=== PATIENT | female | born 1980 | race Caucasian/White ===

== ENCOUNTER 2025-05-29 07:31 | Observation (INO) | payer BC, SELFPAY ==
--- OUTSIDE RECORDS SUMMARY | 2023-12-24 07:00 | XMS_ITS ---
Author Organization [facility] vices Address [address] [place] [id number] Care Team Providers Care Air Traffic Control Supervisor Name Role Phone Jessica Campa Unavailable [phone] REASON FOR VISIT CORPORATE TUTOR Limited Exam Social History Sex Assigned At : Social History Observation Description Sex Assigned At Female Encounters Encounter Location Date Provider Diagnosis [facility] [address] [place], [place] [id number] 12/24/2023 Jessica Campa Plan Of Treatment No Information Progress Notes * Dorcas HAMMONDSDOB: 9 (44 yo F)Acc No.[id number]:12/24/2023 Patient: Dorcas VELOZ Provider: Shad Campa DDS :1980 A ge:43 Y S ex:Female Date:12/24/2023 [facility] [facility] Subjective: * Chief Complaints: * 1 . CORPORATE TUTOR Limited Exam. * Medical History: Objective: * Vitals: Assessment: Plan: * Treatment: * Billing Information: * Visit Code: * Procedure Codes: * Electronic signature of Daren Campa DDS on 05/29/2025 at 07:53 AM EDT Sign off status: Pending * Provider: Shad Campa DDS Date: 12/24/2023 Generated for Shola joy/Elena/eTfanny on: 0 05/29/2025 07:53 AM EDT
--- OUTSIDE RECORDS SUMMARY | 2023-12-24 07:00 | XMS_ITS ---
Author Organization [facility] vices Address [address] [place] [id number] Care Team Providers Care Radiological Technologist Name Role Phone Jessica Campa Unavailable [phone] REASON FOR VISIT MANAGER PROCUREMENT Limited Exam Social History Sex Assigned At : Social History Observation Description Sex Assigned At Female Encounters Encounter Location Date Provider Diagnosis [facility] [address] [place], [place] [id number] 12/24/2023 Jessica Campa Plan Of Treatment No Information Progress Notes * Dorcas HAMMONDSDOB: 9 (44 yo F)Acc No.[id number]:12/24/2023 Patient: Dorcas VELOZ Provider: Shad Campa DDS :1980 A ge:43 Y S ex:Female Date:12/24/2023 [facility] [facility] Subjective: * Chief Complaints: * 1 . MANAGER PROCUREMENT Limited Exam. * Medical History: Objective: * Vitals: Assessment: Plan: * Treatment: * Billing Information: * Visit Code: * Procedure Codes: * Electronic signature of Daren Campa DDS on 05/30/2025 at 09:36 AM EDT Sign off status: Pending * Provider: Shad Campa DDS Date: 12/24/2023 Generated for Shola joy/Elena/eTfanny on: 0 05/30/2025 09:36 AM EDT
--- OUTSIDE RECORDS SUMMARY | 2025-05-25 08:55 | XMS_ITS | Encounter Summary ---
Author Organization [facility] tem Address [id number] [address] [place] [address] Care Team Providers Care Seed Laboratory Assistant Name Role Phone Chata Vargas APRN-CANOPY STRINGER Primary Care Provider + Encounter Details Date Type Department Care Team (Latest Contact Info) Description 05/25/2025 8:55 AM EDT - 05/25/2025 11:59 PM EDT Hospital Encounter [facility] - Cardiovascular [address] [place] [address] Palpitations Discharge Disposition: Home Social History Tobacco Use Types Packs/Day Years Used Date Smoking Tobacco: Never Smokeless Tobacco: Never Alcohol Use Standard Drinks/Week Comments Yes 6 (1 standard drink = 0.6 oz pur e alcohol) Occasional Overall Financial Resource Strain (CARDIA) Answe r Date Recorded How hard is it for you to pa y for the very basics like food, housing, medical care, and heating? Not hard at all 05/10/2025 PHQ-2 Answer Date Recorded Total Score 1 05/11/2025 PRAPARE - Transportation Answer Date Re corded In the past 12 months, has l ack of transportation kept you from medical appointments or from getting medications? No 04/14 In the past 12 months, has l ack of transportation kept you from meetings, work, or from getting things needed for daily living? No 05/10/2025 Housing Instability Answer Date Recorde d Are you worried or concerned that in the next two months you may not have stable housing that you own, rent or stay in as a part of a household? No 05/10/2025 Childcare Answer Date Recorded Childcare Unknown 02/22/2019 Employment Answer Date Recorded Employment Unknown 02/22/2019 Hunger Screening Answer Date Recorded Within the past 12 months we worried whether our food would run out before we got money to buy more. Never True 05/11/2025 Within the past 12 months th e food we bought just didn't last and we didn't have money to get more. Never True 05/11/2025 Purpose - Life Answer Date Recorded Purpose and direction in life Unknown Comments Unknown Sex and Gender Information Value Date Recorded Sex Assigned at Not on file Legal Sex Female 11:24 AM EDT Gender Identity Not on file Sexual Orientation Not on file documented as of this encounter Medications at Time of Discharge amLODIPine (NORVASC) 5 mg tablet Take 1 tablet (5 mg total) by mouth in the morning. 30 tablet 1 05/22/2025 bisoprolol (ZEBETA) 10 mg tablet TAKE 1 TABLET(10 MG) BY MOUTH IN THE MORNING 30 tablet 1 05/24/2025 lisinopriL (PRINIVIL,ZESTRIL ) 40 mg tablet Take 1 tablet (40 mg total) by mouth in the morning. 90 tablet 1 05/11/2025 traZODone (DESYREL) 100 mg tabletIndications :Dysthymia Take 1 tablet (100 mg total) by mouth nightly. 90 tablet 1 10/30/2022 documented as of this encounter Plan of Treatment Upcoming Encounters Date Type Department Care Team (Late st Contact Info) Description 06/21/2025 4:20 PM EDT Office Visit [facility] - Family Medicine [address] [place] [address] Chata Vargas, SUPERVISOR CEMETERY WORKERS-CANOPY STRINGER [address] [place] [address] Pending Results Name Type Priority Associated Diagnoses Date /Time Event monitor Cardiac Services Routine Palpitations 05/25/2025 8:55 AM EDT Scheduled Orders Name Type Priority Associated Diagnoses Orde r Schedule Event monitor Cardiac Services Routine Palpitations Once for 1 Occurrences starting 05/25/2025 until 05/25/2025 documented as of this encounter Visit Diagnoses Diagnosis Palpitations documented in this encounter Additional Health Concerns Assessment Noted Time PHQ-9 Depression Total Score: 1 05/11/20 11:13 AM EDT A Body Mass Index follow-up plan has been documented for the patient 04/06/2025 3:07 PM EDT documented as of this encounter Care Teams Seed Laboratory Assistant Relationship Specialty Start Date End Date Chata Vargas APRN-CANOPY STRINGER [address] [place] [address] PCP - General Internal Medicine 03/04/23 documented as of this encounter
--- OUTSIDE RECORDS SUMMARY | 2025-05-25 08:55 | XMS_ITS | Encounter Summary ---
Author Organization [facility] tem Address [id number] [address] [place] [address] Care Team Providers Care Staple Fiber Washer Name Role Phone Chata Vargas APRN-CONSTRUCTION CODE ADMINISTRATOR Primary Care Provider + Encounter Details Date Type Department Care Team (Latest Contact Info) Description 05/25/2025 8:55 AM EDT - 05/25/2025 11:59 PM EDT Hospital Encounter [facility] - Cardiovascular [address] [place] [address] Palpitations Discharge Disposition: Home Social History Tobacco [...] Medicine - Family Medicine [address] [place] [address] Chata Vargas, BOARD FILLER-CONSTRUCTION CODE ADMINISTRATOR [address] [place] [address] Pending Results Name Type Priority Associated Diagnoses [...] documented as of this encounter Care Teams Staple Fiber Washer Relationship Specialty Start Date End Date Chata Vargas APRN-CONSTRUCTION CODE ADMINISTRATOR [address] [place] [address] PCP - General Internal Medicine 03/04/23 documented as of this encounter
[2025-05-29] VITALS (76 sets, daily range): BP systolic 99–189; BP diastolic 62–130; PULSE 63–130; TEMP 36.5–36.8; O2SAT 96–100; BMI 26.5; BMI 25.0
--- NOTE | 2025-05-29 07:46 | ECG_ITS ---
The [facility] Test Date: 2025-05-29 Pat Name: KALINA HAMMONDS Department: Room: - Gender: Female Environmental Health Officer: : 1980 Requested By: [id number] Order Number: [id number] Reading MD: DAYANARA MOROCHO M.D. Measurements Intervals [place] Rate: 64 P: 46 [place]: 144 QRS: 39 QRSD: 76 T: 52 QT: 404 QTc: 414 Interpretive Statements 1100 Sinus rhythm 9110 normal ECG Compared to ECG 10/22/2021 15:14:45 Sinus tachycardia no longer present Right-axis deviation no longer present Electronically Signed On 05-29-2025 20:11:51 EDT by DAYANARA MOROCHO M.D.
--- NOTE | 2025-05-29 07:47 | CT_ITS ---
The [address] [address] Patient Name: KALINA HAMMONDS MRN: [id number] date: 1980 Sex: F Assigned Patient Location: ER Current Patient Location: ED.MAIN Accession/Order Number: [id number] Exam Date: 05/29/2025 08:40 Report Date: 05/29/2025 09:42 At the request of: AMANDA LOVE MD Procedure: CT head/brain wo con CT BRAIN WITHOUT CONTRAST: CLINICAL HISTORY: headache COMPARISON: None TECHNIQUE: Contiguous axial unenhanced images were obtained through the brain. This CT exam was performed using one or more following dose reduction techniques: Automated exposure control, adjustment of the mA and/or kV according to patient size, or use of iterative reconstruction technique. FINDINGS: There is no evidence of midline shift, intra or extra-axial fluid collection, hemorrhage or CT evidence of of acute large vascular distribution stroke. Mild scattered periventricular subcortical hypoattenuation noted nonspecific greatest within posterior parietal regions with possible areas of temporoparietal loss of jackson-white differentiation. Visualized intraorbital contents appear unremarkable. Visualized paranasal sinuses are clear. The surrounding soft tissues are normal. CT/CT head/brain wo con IMPRESSION: Multifocal hypoattenuation noted may raise possibility for PRES given the reported hypertension. Encephalitis or subacute infarcts, less likely, may also be considered in appropriate clinical setting. Consider MRI without with contrast if there are no contraindications. Impression dictated by: Piero Lopez M.D. 05/29/2025 9:42 AM Dictation Location: [place] [address] Electronically authenticated by: [id number] Y Date: 05/29/2025 09:42
--- OUTSIDE RECORDS SUMMARY | 2025-05-29 07:53 | XMS_ITS | Encounter Summary ---
Author Organization [employer] Sys tem Address [id number] [address] [place] [address] Care Team Providers Care Quality Control Checker Name Role Phone Chata Vargas APRN-SUPERVISORY CIVIL ENGINEER Primary Care Provider + Reason for Visit * Reason Onset Date Comments Med Refill 12/07/2024 Encounter Details Date Type Department Care Team (Late st Contact Info) Description 12/07/2024 Refill [facility] - Family Medicine [address] [place] [address] Chata Vargas APRN-SUPERVISORY CIVIL ENGINEER [address] [place] [address] Dysthymia Social History Tobacco Use Types Packs/Day Years Used Date Smoking Tobacco: Never Smokeless Tobacco: Never Alcohol Use Standard Drinks/Week Comments Yes 6 (1 standard drink = 0.6 oz pur e alcohol) Occasional Overall Financial Resource Strain (CARDIA) Answe r Date Recorded How hard is it for you to pa y for the very basics like food, housing, medical care, and heating? Not very hard 06/22/2023 PHQ-2 Answer Date Recorded Total Score 0 05/18/2024 PRAPARE - Transportation Answer Date Re corded In the past 12 months, has l ack of transportation kept you from medical appointments or from getting medications? No 06/13 In the past 12 months, has l ack of transportation kept you from meetings, work, or from getting things needed for daily living? No 06/22/2023 Housing Instability Answer Date Recorde d Are you worried or concerned that in the next two months you may not have stable housing that you own, rent or stay in as a part of a household? No 06/22/2023 Childcare Answer Date Recorded Childcare Unknown 02/22/2019 Employment Answer Date Recorded Employment Unknown 02/22/2019 Hunger Screening Answer Date Recorded Within the past 12 months we worried whether our food would run out before we got money to buy more. Never True 05/18/2024 Within the past 12 months th e food we bought just didn't last and we didn't have money to get more. Never True 05/18/2024 Purpose - Life Answer Date Recorded Purpose and direction in life Unknown Comments Unknown Sex and Gender Information Value Date Recorded Sex Assigned at Not on file Legal Sex Female 11:24 AM EDT Gender Identity Not on file Sexual Orientation Not on file documented as of this encounter Miscellaneous Notes * Telephone Encounter - MANUEL Thomas - 12/07/2024 3:07 PM EDT She has not had this in the last 2 yrs- with her new Dx of MARVIN I'd like to make sure she has been using her mask every night. She canceled her appt today - can she re-schedule ? documented in this encounter Plan of Treatment Upcoming Encounters Date Type Department Care Team (Late st Contact Info) Description 06/21/2025 4:20 PM EDT Office Visit [facility] - Family Medicine [address] [place] [address] Chata Vargas APRN-CNP [address] [facility] [address] [place] [address] documented as of this encounter Visit Diagnoses Diagnosis Dysthymia Dysthymic disorder documented in this encounter Additional Health Concerns Assessment Noted Time PHQ-9 Depression Total Score: 0 05/18/20 24 11:33 AM EDT documented as of this encounter Care Teams Quality Control Checker Relationship Specialty Start Date End Date Chata Vargas APRN-CNP [address] [place] [address] PCP - General Internal Medicine 03/04/23 documented as of this encounter
--- OUTSIDE RECORDS SUMMARY | 2025-05-29 07:53 | XMS_ITS | Encounter Summary ---
Author Organization [facility] Sys tem Address [id number] [address] [place] [address] Care Team Providers Care Laborer Orchard Name Role Phone Chata Vargas APRN-AUXILIARY ENGINEER Primary Care Provider + Encounter Details Date Type Department Care Team (Late st Contact Info) Description 09/05/2024 Orders Only [facility] - Family Medicine [address] [place] [address] Dalton Reyes, DO [address] [place] [address] Social History Tobacco Use Types Packs/Day Years [...] on file documented as of this encounter Plan of Treatment Upcoming Encounters Date Type Department Care Team (Late st Contact Info) Description 06/21/2025 4:20 PM EDT Office Visit [facility] - Family Medicine [address] [address] Chata Vargas, INTERACTIVE DIGITAL MEDIA SPECIALIST-AUXILIARY ENGINEER [address] [place] [address] documented as of this encounter Visit Diagnoses Not on filedocumented in this encounter Additional Health Concerns Assessment Noted Time PHQ-9 Depression Total Score: 0 05/18/20 24 11:33 AM EDT documented as of this encounter Care Teams Laborer Orchard Relationship Specialty Start Date End Date Chata Vargas, INTERACTIVE DIGITAL MEDIA SPECIALIST-AUXILIARY ENGINEER [address] [place] [address] PCP - General Internal Medicine 03/04/23 documented as of this encounter
--- OUTSIDE RECORDS SUMMARY | 2025-05-29 07:53 | XMS_ITS | Encounter Summary ---
Author Organization [facility] Address [id number] [address] [place] [address] Care Team Providers Care Music Composition Teacher Name Role Phone Chata Vargas APRN-PROFESSIONAL HEALTHCARE REPRESENTATIVE Primary Care Provider + Encounter Details Date Type Department Care Team (Late st Contact Info) Description 07/15/2023 Telephone [facility] - Family Medicine [address] [place] [phone] Tamiko Schofield CMA Social History Tobacco Use Types Packs/Day Years Used Date Smoking Tobacco: Never Smokeless Tobacco: Never Alcohol Use Standard Drinks/Week Comments Yes 0 (1 standard drink = 0.6 oz pur e alcohol) Occasional Overall Financial Resource Strain (CARDIA) Answe r Date Recorded How hard is it for you to pa y for the very basics like food, housing, medical care, and heating? Not very hard 06/22/2023 PHQ-2 Answer Date Recorded Total Score 0 06/22/2023 PRAPARE - Transportation Answer Date Re corded [...] got money to buy more. Never True 06/22/2023 Within the past 12 months th e food we bought just didn't last and we didn't have money to get more. Never True 06/22/2023 Purpose - Life Answer Date Recorded Purpose and direction in life Unknown Comments Unknown Sex and Gender Information Value Date Recorded Sex Assigned at Not on file Legal Sex Female 11:24 AM EDT Gender Identity Not on file Sexual Orientation Not on file documented as of this encounter Miscellaneous Notes * Telephone Encounter - Tamiko Schofield CMA - 07/15/2023 1:59 PM EDT Patient called and stated her rash has gotten worse. * Telephone Encounter - LINDA Duncan - 07/15/2023 1:59 PM EDT In what way has it gotten worse? LINDA Duncan 07/15/23 1427 * Telephone Encounter - Tamiko Schofield CMA - 07/15/2023 1:59 PM EDT Rash has spread a little but is more itchy and inflamed. * Telephone Encounter - LINDA Duncan - 07/15/2023 1:59 PM EDT That is typical of this type of rash, it takes 3-4 weeks to go away, has she repeated the second cycle yet? She should use that and use a moisturizer and take an antihistimine LINDA Duncan 07/15/23 1623 * Telephone Encounter - Tamiko Schofield CMA - 07/15/2023 1:59 PM EDT Patient states she has been doing all of this. She wanted to know if you could refer her to a Photocopy Operator near [place]? * Telephone Encounter - LINDA Duncan - 07/15/2023 1:59 PM EDT If it is no better in two weeks I will however with this rash this is still what is expected so sheneeds to give it time - LINDA Hayward 07/15/23 1705 * Telephone Encounter - Tamiko Schofield CMA - 07/15/2023 1:59 PM EDT LM for patient told her to call back if no better in 2 weeks documented in this encounter Plan of Treatment Upcoming Encounters Date Type Department Care Team (Late st Contact Info) Description 06/21/2025 4:20 PM EDT Office Visit [facility] - Family Medicine [address] [place] [address] Chata Vargas APRN-CNP [address] [place] [address] documented as of this encounter Visit Diagnoses Not on filedocumented in this encounter Additional Health Concerns Assessment Noted Time PHQ-9 Depression Total Score: 0 06/22/20 3:18 PM EDT documented as of this encounter Care Teams Music Composition Teacher Relationship Specialty Start Date End Date Chata Vargas APRN-CNP [address] [place] [address] PCP - General Internal Medicine 03/04/23 documented as of this encounter
--- OUTSIDE RECORDS SUMMARY | 2025-05-29 07:53 | XMS_ITS | Encounter Summary ---
Author Organization [facility] Address [id number] [address] [place] [address] Care Team Providers Care Yarn Sorter Name Role Phone Chata Vargas APRN-TILE LAYER HELPER Primary Care Provider + Encounter Details Date Type Department Care Team (Late st Contact Info) Description 02/06/[address] [facility] [address] [place] [address] Froylan Alvarado CMA Social History Tobacco Use Types Packs/Day [...] encounter Miscellaneous Notes * Telephone Encounter - Froylan Alvarado CMA - 02/06/2025 11:14 AM EDT Does her neuro want her to continue with this - in the last note, they said it wasn't helping her 01/31/25 2:13 PM Interface_Surescripts_Refills_In routed this conversation to MANUEL Thomas 01/12 * Telephone Encounter - Froylan Alvarado CMA - 02/06/2025 11:14 AM EDT I called pt and she states it does help relieve the pressure. Pharmacy is listed and correct. documented in this encounter Plan of Treatment Upcoming Encounters Date Type Department Care Team (Late st Contact Info) Description 06/21/2025 4:20 PM EDT Office Visit [facility] - Family Medicine [address] [place] [address] Chata Vargas APRN-CNP [address] [place] [address] documented as of this encounter Visit Diagnoses Not on filedocumented in this encounter Additional Health Concerns Assessment Noted Time PHQ-9 Depression Total Score: 0 05/18/20 24 11:33 AM EDT documented as of this encounter Care Teams Yarn Sorter Relationship Specialty Start Date End Date Chata Vargas, LINING MAKER HAND-TILE LAYER HELPER [address] [place] [address] PCP - General Internal Medicine 03/04/23 documented as of this encounter
--- OUTSIDE RECORDS SUMMARY | 2025-05-29 07:53 | XMS_ITS | Clinical Summary ---
Author Organization [facility] Address [address] [place] [address] Care Team Providers Care Staple Shear Operator Name Role Phone Chata Vargas MD Unavailable Unallocated, Noms Provider Primary Care Provi aracelis Allergies No known active allergies Medications carBAMazepine XR (TEGretol XR) 200 MG 12 hr tablet Take 200 mg by mouth in the morning and 200 mg before bedtime. Do not crush, chew, or split.. Active bisoprolol (Zebeta) 10 MG tablet Take 10 mg by mouth Daily Active traZODone (Desyrel) 100 MG tablet Take 100 mg by mouth at bedtime Active Social History Tobacco Use Types Packs/Day Years Used Date Smoking Tobacco: Never Assessed Comments Unknown Sex and Gender Information Value Date Recorded Sex Assigned at Not on file Legal Sex Female 10:40 AM EDT Gender Identity Not on file Sexual Orientation Not on file Last Filed Vital Signs Vital Sign Reading Time Taken Comments Blood Pressure 158/96 09/19/2024 3:39 PM EST Pulse 63 09/19/2024 3:39 PM EST Temperature - - Respiratory Rate - - Oxygen Saturation 96% 09/19/2024 3:39 PM EST Inhaled Oxygen Concentration - - Weight 64.6 kg (142 lb 6.4 oz) 09/19/2024 3:39 P M EST Height 157.5 cm (5' 2 ) 06/26/2024 8:56 AM EDT Body Mass Index 26.05 06/26/2024 8:56 AM EDT Plan of Treatment Health Maintenance Due Date Last Done Comments CT Colonography 1980 Colonoscopy 1980 Colorectal Cancer Screening 1980 FIT-DNA 1980 FIT 1979 FOBT 1980 Sigmoidoscopy 1980 Mammogram 05/09/2025 05/09/2024, 04/14, 11/16/2022, Additional history exists Influenza Vaccine (#1) 2025 06/18/2022, 2016 Pap Smear 03/07/2027 03/07/2024, 03/07/2024, 03/02/2018 Cervical Cancer Screening 03/08/2030 HPV/Cotest 03/08/2030 03/08/2025, 02/12, 03/07/2024, Additional history exists [place] [address] Care Teams Staple Shear Operator Relationship Specialty Start Date End Date Unallocated, Noms MD [address] [place] [address] PCP - General Family Medicine 07/27/24 Chata Vargas MD Referring Physician Family Medicine 05/23/24
--- OUTSIDE RECORDS SUMMARY | 2025-05-29 07:53 | XMS_ITS | Encounter Summary ---
Author Organization [facility] Sys tem Address [facility] [id number] [address] [place] [address] Care Team Providers Care Comic Book Artist Name Role Phone Chata Vargas APRN-HELIX COIL WINDER Primary Care Provider + Encounter Details Date Type Department Care Team (Late st Contact Info) Description 05/22/2025 Orders Only [facility] - Family Medicine [address] [place] [address] Chata Vargas APRN-HELIX COIL WINDER [address] [place] [address] Social History Tobacco Use Types Packs/Day Years [...] Medicine - Family Medicine [address] [place] [address] Chata Vargas DRAFTER (CAD) ELECTRICAL-HELIX COIL WINDER [address] [place] [address] documented as of this encounter Visit Diagnoses Not on filedocumented in this encounter Additional Health Concerns Assessment Noted Time PHQ-9 Depression Total Score: 1 05/11/20 25 11:13 AM EDT A Body Mass Index follow-up plan has been documented for the patient 04/06/2025 3:07 PM EDT documented as of this encounter Care Teams Comic Book Artist Relationship Specialty Start Date End Date Chata Vargas DRAFTER (CAD) ELECTRICAL-HELIX COIL WINDER [address] [place] [address] PCP - General Internal Medicine 03/04/23 documented as of this encounter
--- OUTSIDE RECORDS SUMMARY | 2025-05-29 07:53 | XMS_ITS | Encounter Summary ---
Author Organization [employer] Sys tem Address [facility] [id number] [address] [place] [address] Care Team Providers Care Bloom Conveyor Operator Name Role Phone Chata Vargas APRN-FOURTH OFFICER Primary Care Provider + Reason for Visit * Reason Onset Date Comments Med Refill 10/24/2024 Encounter Details Date Type Department Care Team (Late st Contact Info) Description 10/24/2024 Refill [facility] Internal Medicine - Family Medicine [address] [place] [id number] Korina, Migdalia, BEHAVIORAL GENETICIST Social History Tobacco Use Types Packs/Day Years [...] Medicine - Family Medicine [address] [place] [address] Chata Vargas RESEARCH METHODS INSTRUCTOR-FOURTH OFFICER [address] [facility] [address] documented as of this encounter Visit Diagnoses Not on filedocumented in this encounter Additional Health Concerns Assessment Noted Time PHQ-9 Depression Total Score: 0 05/18/20 24 11:33 AM EDT documented as of this encounter Care Teams Bloom Conveyor Operator Relationship Specialty Start Date End Date Chata Vargas RESEARCH METHODS INSTRUCTOR-FOURTH OFFICER [address] [place] [address] PCP - General Internal Medicine 03/04/23 documented as of this encounter
--- OUTSIDE RECORDS SUMMARY | 2025-05-29 07:53 | XMS_ITS | Clinical Summary ---
Author Organization [facility] Address [address], [address] [place] [address] Care Team Providers Care Clinical Office Technician Name Role Phone Dalton Reyes DO Primary Care Provider [phone] Allergies No known active allergies Medications bisoprolol (ZEBETA) 10 MG tablet Take 1 tablet by mouth daily Active Active Problems Problem Noted Date Diagnosed Date Essential hypertension 06/10/2020 Drug-induced hypokalemia 12/28/2019 Hypertriglyceridemia 11/06/2016 History of palpitations 06/08/2016 Encounters Date Type Department Care Team Description 03/12/2025 Results Follow-Up [facility] Part [address] [place] [address] Meghana Bustamante APRN - REGINE 03/08/2025 11:09 AM EDT - 03/08/2025 11:59 PM EDT Hospital Encounter [facility] [address] [place], [place] [id number] Well woman exam with routine gynecological exam; Screening for HPV (human papillomavirus) Discharge Disposition: Home or Self Care 03/08/2025 10:10 AM EDT Office Visit [facility] [address] [place], [place] [id number] Meghana Bustamante, MEDIA MARKETING SPECIALIST - CNM Well woman exam with routine gynecological exam (Primary Dx); Screening for HPV (human papillomavirus); Encounter for screening mammogram for malignant neoplasm of breast from Last 3 Months Immunizations Immunization Administration Dates Next Due Influenza Vaccine, unspecified formulation 07/19 Family History Medical History Relation Name Comments Asthma Brother 2 Kvng Diabetes Father Dylan oral medication & diet control High Cholesterol Father Dylan Seizures Father Hurbert Asthma Mother Beena Migraines Mother Beena Osteoarthritis Mother Beena Breast Cancer Neg Hx Relation Name Status Comments Brother 1 Alive Brother 2 Kvng Father Dylan Alive Maternal Grandfather Maternal Grandmother Mother Beena Alive Paternal Grandfather Paternal Grandmother Sister Alive Social History Tobacco Use Types Packs/Day Years Used Date Smoking Tobacco: Never Smokeless Tobacco: Never Tobacco Cessation:Counseling Given: Yes Alcohol Use Standard Drinks/Week Comments Yes 6 (1 standard drink = 0.6 oz pur e alcohol) socially [facility] Utilities Answer Date Recorded In the past 12 months has th e Analyze Re, gas, oil, or water Shift Network threatened to shut off services in your home? No 03/08/2025 PHQ-2 Answer Date Recorded PHQ-9 Total Score 0 03/08/2025 Hunger Vital Sign Answer Date Recorded Within the past 12 months, y ou worried that your food would run out before you got the money to buy more. Never true 03/08/20 25 Within the past 12 months, t he food you bought just didn't last and you didn't have money to get more. Never true 03/08/2025 PRAPARE - Transportation Answer Date Re corded In the past 12 months, has l ack of transportation kept you from medical appointments or from getting medications? No 02/12 In the past 12 months, has l ack of transportation kept you from meetings, work, or from getting things needed for daily living? No 03/08/2025 Housing Stability Vital Sign Answer Rod e Recorded In the last 12 months, was t here a time when you were not able to pay the mortgage or rent on time? No 03/08/2025 In the past 12 months, how m any times have you moved where you were living? 0 03/08/2025 At any time in the past 12 m [facility], were you homeless or living in a half-way (including now)? No 03/08/2025 Food Insecurity Answer Date Recorded Within the past 12 months, y ou worried that your food would run out before you got the money to buy more. 1 03/08/2025 Within the past 12 months, t he food you bought just didn't last and you didn't have money to get more. 1 03/08/2025 Comments No Sex and Gender Information Value Date Recorded Sex Assigned at Female 03/07/2025 10:20 AM EDT Legal Sex Female 4:15 PM EST Gender Identity Not on file Sexual Orientation Not on file Last Filed Vital Signs Vital Sign Reading Time Taken Comments Blood Pressure 136/86 03/08/2025 9:50 AM EDT Pulse 88 05/24/2014 10:54 AM EDT Temperature - - Respiratory Rate 18 12/03/2014 1:09 PM EDT Oxygen Saturation - - Inhaled Oxygen Concentration - - Weight 63.5 kg (140 lb) 03/08/2025 9:50 AM EDT Height 157.5 cm (5' 2 ) 03/08/2025 9:50 AM EDT Body Mass Index 25.61 03/08/2025 9:50 AM EDT Plan of Treatment Upcoming Encounters Date Type Department Care Team (Late st Contact Info) Description 06/22/2025 8:00 AM EDT Appointment [facility] [address] [place] [address] Yearly 03/12/2026 10:10 AM EDT Office Visit [facility] Part of [address] [place] [address] Meghana Bustamante APRN - ROSE [address] [place] [address] annual Health Maintenance Due Date Last Done Comments Hepatitis C screen 1997 Hepatitis B vaccine (1 of 3 - 19+ 3-dose series) 1998 Diabetes screen 2014 Lipids 2019 DTaP/Tdap/Td vaccine (2 - Td or Tdap) 07/27/2021 07/27/2011 Colonoscopy 2024 Colorectal Cancer Screen 2024 FIT/FOBT: Average risk 2024 Fecal-DNA (Cologuard): Average risk 2024 Sigmoidoscopy/CT colonography 2024 Flu vaccine (#1) 04/13/2025 06/18/2022, 07/19/2017 COVID-19 Vaccine ( season) 2025 11/07/2020, 10/17/2020 Depression Screen 03/08/2026 03/08/2025, 03/08/2025 Breast cancer screen 05/09/2026 05/09/2024, 11/16/2022, 11/19/2017 Pap smear 03/08/2028 03/08/2025, 02/12, 11/16/2017, Additional history exists Cervical cancer screen 03/08/2030 HPV (without or with Pap) 03/08/20302024, 03/07/2024, 11/16/2017 HIV screen Completed 09/13/2008 HPV vaccine (No Doses Required) Completed Hepatitis A vaccine Aged Out No longe r eligible based on patient's age to complete this topic Hib vaccine Aged Out No longer eligi ble based on patient's age to complete this topic Meningococcal (ACWY) vaccine Aged Out No longer eligible based on patient's age to complete this topic Meningococcal B vaccine Aged Out No l onger eligible based on patient's age to complete this topic Pneumococcal 0-49 years Vaccine Aged Out No longer eligible based on patient's age to complete this topic Polio vaccine Aged Out No longer elig ible based on patient's age to complete this topic Procedures Procedure Name Priority Date/Time Associated Diagnosis Comments HUMAN PAPILLOMAVIRUS (HPV) DNA PROBE THIN PREP HIGH RISK Routine 03/08/2025 12:00 AM EDT MARKETING REPORTING ANALYST CYTOLOGY Routine 03/08/2025 12:00 AM EDT LEE SHILPA DIGITAL SCREEN BILATERAL Routine 05/09/2024 7:55 AM EDT Encounter for screening mammogram for malignant neoplasm of breast from Last 3 Months or Most Recently Relevant to Health Maintenance Results * Human papillomavirus (HPV) DNA probe thin prep high risk (03/08/2025 12:00 AM EDT) Specimen Description CERVICAL MATERIAL 03/08/2025 12:00 AM EDT [facility] .THIN PREP 03/08/2025 12:00 AM EDT [facility] [employer] HPV, Genotype 16 Not Detected Not Detected 03/08/2025 12:00 AM EDT [facility] HPV, Genotype 18 Not Detected Not Detected 03/08/2025 12:00 AM EDT [employer] HPV, High Risk Other Not Detected Not Detected 03/08/2025 12:00 AM EDT [facility] HPV, Interpretation 03/08/2025 12:00 AM EDT [facility] [employer] Comment: This test amplifies and detects DNA of 14 high-risk HPV types associated with cervical cancer and its precursor lesions (HPV types 16,18, 31, 33, 35, 39, 45, 51, 52, 56, 58, 59, 66, and 68). Sensitivity may be affected by specimen collection methods, stage of infection, and the presence of interfering substances. Results should be interpreted in conjunction with other available laboratory and clinical data. A negative high-risk HPV result does not exclude the possibility of future cytologic HSIL or underlying CIN2-3 or cancer. This test is intended for medical purposes only and is not valid for the evaluation of suspected sexual abuse or for other forensic purposes. CERVICAL MATERIAL 03/08/2025 Meghana Bustamante MEDIA MARKETING SPECIALIST - CN HEMATOLOGY ORDERABLES Final Result [facility] [address] [place] [address], [facility] [phone] [place] [id number] [place] [id number] [phone] * MARKETING REPORTING ANALYST Cytology (03/08/2025 12:00 AM EDT) Cytology Report Path Number: [id number] DIAGNOSIS Imaged ThinPrep Pap - Cervical (1 monolayer slide): Specimen Adequacy: Satisfactory for evaluation. -Endocervical/tra nsformation zone component is absent. Descriptive Diagnosis: Negative for intraepithelial lesion or malignancy. Cytotech Screener: EY Electronically Signed Out E. Young CT(ASCP) 03/20/2025 Procedure/Addendum HPV Procedure Report Date Ordered: 03/09/2025 Status: Signed Out Date Complete: 03/11/2025 By: System Interface Date Reported: 03/11/2025 Sample: HPV Type 16 Result: Not Detected Ref Range: Not Detected Sample: HPV Type 18 Result: Not Detected Ref Range: Not Detected Sample: Other High Risk HPV Result: Not Detected Ref Range: Not Detected Sample: HPV Interp Result: Ref Range: This test amplifies and detects DNA of 14 high-risk HPV types associated with cervical cancer and its precursor lesions (HPV types 16,18, 31, 33, 35, 39, 45, 51, 52, 56, 58, 59, 66, and 68). Sensitivity may be affected by specimen collection methods, stage of infection, and the presence of interfering substances. Results should be interpreted in conjunction with other available laboratory and clinical data. A negative high-risk HPV result does not exclude the possibility of future cytologic HSIL or underlying CIN2-3 or cancer. This test is intended for medical purposes only and is not valid for the evaluation of suspected sexual abuse or for other forensic purposes. Performed at [facility] [address] ([phone] Source of Specimen: A: Imaged ThinPrep Pap - Cervical (1 monolayer slide) HPV Reflex?........... ...........HPV Regardless Clinical History Z01.419 Routine visual supervisor exam without abnormal findings Z11.51 Encounter for screening for HPV Processing Lab: [address] [address] Interpretation performed at [address] [address] This Pap Test has been evaluated with the assistance of the ThinPrep Pap Test Imaging System. The Pap smear is a screening test primarily for squamous epithelial lesions, which is subject to both false negative and false positive results. Your patient should be reminded to consult you immediately if she experiences any suspicious signs or symptoms, regardless of her Pap smear result. GYNECOLOGIC CYTOLOGY REPORT Patient Name: KALINA HAMMONDS [facility] Rec: [id number] [facility] ANATOMIC PATHOLOGY [address] [place] [address]. [place], [place] [address] [facility] [employer] CERVICAL MATERIAL 03/08/2025 025 7:41 AM EDT Meghana Bustamante MEDIA MARKETING SPECIALIST - REGINE PATHOLOGY/CYTOLOGY OR DERABLES Final Result [facility] [address] [phone] [facility] [employer] * LEE SHILPA DIGITAL SCREEN BILATERAL (05/09/2024 7:55 AM EDT) Anatomical Region Laterality Modality Breast Bilateral Mammography 05/10/2024 10:4 3 AM EDT Impressions 05/10/2024 10:45 AM EDT No mammographic evidence of malignancy BIRADS: BIRADS - CATEGORY 1 Negative. Normal interval follow-up is recommended in 12 months. OVERALL ASSESSMENT - NEGATIVE A letter of notification will be sent to the patient regarding the results. The [employer] recommends annual mammograms for women 40 years and older. Narrative 05/10/2024 10:45 AM EDT EXAMINATION: SCREENING DIGITAL BILATERAL MAMMOGRAM WITH TOMOSYNTHESIS, 05/09/2024 TECHNIQUE: Screening mammography was performed with tomosynthesis including MLO and CC views of the bilateral breasts. Computer aided detection was used for the interpretation of this exam. COMPARISON: November 19, 2017 and November 16 HISTORY: Screening. FINDINGS: The breasts are heterogeneously dense which can obscure small masses. There is no dominant mass architectural distortion or concerning grouping of microcalcification in either breast. Meghana Bustamante APRN - CNBrooke IMG MAMMOGRAPHY ORDER MP Final Result from Last 3 Months or Most Recently Relevant to Health Maintenance Insurance Care Teams Clinical Office Technician Relationship Specialty Start Date End Date Dalton Reyes DO PCP - General 11/23/13
--- OUTSIDE RECORDS SUMMARY | 2025-05-29 07:53 | XMS_ITS | Encounter Summary ---
Author Organization [facility] Sys tem Address [facility] [id number] [address] [place] [address] Care Team Providers Care Machining Technician Name Role Phone Chata Vargas APRN-CIRCULAR KNITTER Primary Care Provider + Reason for Visit * Reason Comments Med Refill Encounter Details Date Type Department Care Team (Late st Contact Info) Description 05/22/2025 Refill [facility] Internal Medicine - Family Medicine [address] [place] [address] Chata Vargas APRNCIRCULAR KNITTER [address] [facility] [address] Social History Tobacco Use Types Packs/Day Years [...] Medicine - Family Medicine [address] [place] [address] Chata Vargas APRN-CIRCULAR KNITTER [address] [place] [address] documented as of this encounter Visit Diagnoses Not on filedocumented in this encounter Additional Health Concerns Assessment Noted Time PHQ-9 Depression Total Score: 1 05/11/20 25 11:13 AM EDT A Body Mass Index follow-up plan has been documented for the patient 04/06/2025 3:07 PM EDT documented as of this encounter Care Teams Machining Technician Relationship Specialty Start Date End Date Chata Vargas RESIDENTIAL DOOR INSTALLER-CIRCULAR KNITTER [address] [place] [address] PCP - General Internal Medicine 03/04/23 documented as of this encounter
--- OUTSIDE RECORDS SUMMARY | 2025-05-29 07:53 | XMS_ITS | Encounter Summary ---
Author Organization [facility] Address [address] [place] [address] Care Team Providers Care Sales Representative Advertising Name Role Phone Chata Vargas MD Unavailable Unallocated, Noms Provider Primary Care Provi aracelis Encounter Details Date Type Department Care Team (Late st Contact Info) Description 07/31/2024 External Result Encounter [facility] [address] [place] [phone] Morales Johnston DO [address] [place] [address] Social History Tobacco Use Types Packs/Day Years Used Date Smoking Tobacco: Never Assessed Comments Unknown Sex and Gender Information Value Date Recorded Sex Assigned at Not on file Legal Sex Female 10:40 AM EDT Gender Identity Not on file Sexual Orientation Not on file documented as of this encounter Plan of Treatment Not on file documented as of this encounter Procedures Procedure Name Priority Date/Time Associated Diagnosis Comments MR BRAIN W AND WO CONTRAST (ROUTINE) 07/31/2024 9:16 AM EST documented in this encounter Results * MR brain w and wo contrast routine (07/31/2024 9:16 AM EST) Anatomical Region Laterality Modality Brain Magnetic Resonan ce 07/31/2024 9:16 AM EST Narrative 07/31/2024 9:14 AM EST THIS EXAM WAS PERFORMED AT [facility] MR BRAIN W WO CONT 07/29/2024 7:35 AM SIGN AND SYMPTOMS: Cranial nerve III palsy on left, pain and pressure behind left eye PROTOCOL: Multiplanar multisequence MR images of the brain were obtained with and without IV contrast CONTRAST: 13 mL of intravenous ProHance COMPARISON: None. FINDINGS: Extra axial spaces: Age appropriate. Hemorrhage: None. Ventricular system: Within normal limits. Basal cisterns: Within normal limits and not effaced. Cerebral parenchyma: There are nonspecific T2 and FLAIR hyperintense foci in the periventricular and subcortical white matter bilaterally. There is extension into the juxtacortical white matter. This is suspicious for a demyelinating process. No abnormal postcontrast enhancement. No diffusion restriction. Midline shift: None. Cerebellum: Within normal limits. Brainstem: Within normal limits. OTHER: Calvarium: Normal marrow signal. Vascular system: Satisfactory flow voids within the anterior and posterior circulation. Visualized Paranasal sinuses: Within normal limits. Visualized Orbits: Within normal limits. Visualized upper cervical spine: Within normal limits. Sella and skull base: Within normal limits. IMPRESSION: No acute intracranial pathology or abnormal postcontrast enhancement. There are nonspecific T2 and FLAIR hyperintense foci in the periventricular and subcortical white matter bilaterally. There is extension into the juxtacortical white matter. This is suspicious for a demyelinating process. Finalized by Darrin Morrison on 07/31/2024 9:14 AM Procedure Note Radiology, Radiologist, MD - 07/31/2024 THIS EXAM WAS PERFORMED AT [facility] MR BRAIN W WO CONT 07/29/2024 7:35 AM SIGN AND SYMPTOMS: Cranial nerve III palsy on left, pain and pressurebehind left eye PROTOCOL: Multiplanar multisequence MR images of the brain were obtainedwith and without IV contrast CONTRAST: 13 mL of intravenous ProHance COMPARISON: None. FINDINGS: Extra axial spaces: Age appropriate. Hemorrhage: None. Ventricular system: Within normal limits. Basal cisterns: Within normal limits and not effaced. Cerebral parenchyma: There are nonspecific T2 and FLAIR hyperintense fociin the periventricular and subcortical white matter bilaterally. There isextension into the juxtacortical white matter. This is suspicious for ademyelinating process. No abnormal postcontrast enhancement. Nodiffusion restriction. Midline shift: None. Cerebellum: Within normal limits. Brainstem: Within normal limits. OTHER: Calvarium: Normal marrow signal. Vascular system: Satisfactory flow voids within the anterior and posteriorcirculation. Visualized Paranasal sinuses: Within normal limits. Visualized Orbits: Within normal limits. Visualized upper cervical spine: Within normal limits. Sella and skull base: Within normal limits. IMPRESSION: No acute intracranial pathology or abnormal postcontrast enhancement. There are nonspecific T2 and FLAIR hyperintense foci in theperiventricular and subcortical white matter bilaterally. There isextension into the juxtacortical white matter. This is suspicious for ademyelinating process. Finalized by Darrin Morrison on 07/31/2024 9:14 AM Morales Johnston DO IMG MRI PROCEDURES Final Result documented in this encounter Visit Diagnoses Not on filedocumented in this encounter Care Teams Sales Representative Advertising Relationship Specialty Start Date End Date Unallocated, Noms MD [facility] [address] [place] [address] PCP - General Family Medicine 07/27/24 Chata Vargas MD Referring Physician Family Medicine 05/23/24 documented as of this encounter
--- OUTSIDE RECORDS SUMMARY | 2025-05-29 07:53 | XMS_ITS | Encounter Summary ---
Author Organization [employer] Sys [employer] Address [facility] [id number] [address] [place] [address] Care Team Providers Care Remote Broadcast Technician Name Role Phone Alicia Chata Brown APRN-CLOTHER IN Primary Care Provider + Reason for Visit * Reason Onset Date Comments Med Refill 05/24/2025 Encounter Details Date Type Department Care Team (Late st Contact Info) Description 05/24/2025 Refill [facility] Internal Medicine - Family Medicine [address] [place] [address] Nargis Davies CMA Social History Tobacco Use Types Packs/Day [...] Medicine - Family Medicine [address] [place] [address] Chata Vargas APRN-CNP [address] [facility] [address] documented as of this encounter Visit Diagnoses Not on filedocumented in this encounter Additional Health Concerns Assessment Noted Time PHQ-9 Depression Total Score: 1 05/11/20 25 11:13 AM EDT A Body Mass Index follow-up plan has been documented for the patient 04/06/2025 3:07 PM EDT documented as of this encounter Care Teams Remote Broadcast Technician Relationship Specialty Start Date End Date Chata Vargas APRN-CNP [address] [facility] [address] PCP - General Internal Medicine 03/04/23 documented as of this encounter
--- OUTSIDE RECORDS SUMMARY | 2025-05-29 07:53 | XMS_ITS | Encounter Summary ---
Author Organization [employer] Address [facility] [place]-[id number] [address] [place] [address] Care Team Providers Care Electrical Maintenance Supervisor Name Role Phone Alicia Chata Brown APRN-MINE PRODUCTION ENGINEER Primary Care Provider + Encounter Details Date Type Department Care Team (Latest Contact Info) Description 05/25/2025 Travel Social History Tobacco Use Types Packs/Day Years [...] Medicine - Family Medicine [address] [place] [address] Chata Vargas APRN-MINE PRODUCTION ENGINEER [address] [place] [address] documented as of this encounter Visit Diagnoses Not on filedocumented in this encounter Additional Health Concerns Assessment Noted Time PHQ-9 Depression Total Score: 1 05/11/20 11:13 AM EDT A Body Mass Index follow-up plan has been documented for the patient 04/06/2025 3:07 PM EDT documented as of this encounter Care Teams Electrical Maintenance Supervisor Relationship Specialty Start Date End Date Chata Vargas APRN-CNP [address] [place] [address] PCP - General Internal Medicine 03/04/23 documented as of this encounter
--- OUTSIDE RECORDS SUMMARY | 2025-05-29 07:53 | XMS_ITS | Encounter Summary ---
Author Organization [facility] Primordial Sys tem Address [id number] [address] [place] [address] Care Team Providers Care Manager Environmental Health And Safety Name Role Phone Chata Vargas APRN-OFFICE EXECUTIVE Primary Care Provider + Reason for Visit * Reason Comments Med Refill Encounter Details Date Type Department Care Team (Late st Contact Info) Description 05/22/2025 Refill [facility] Internal Medicine - Family Medicine [address] [place] [address] Chata Vargas APRNOFFICE EXECUTIVE [address] [facility] [address] [address] Social History Tobacco Use Types Packs/Day Years [...] Medicine - Family Medicine [address] [place] [address] Chata Vargas APRN-OFFICE EXECUTIVE [address] [place] [address] documented as of this encounter Visit Diagnoses Not on filedocumented in this encounter Additional Health Concerns Assessment Noted Time PHQ-9 Depression Total Score: 1 05/11/20 25 11:13 AM EDT A Body Mass Index follow-up plan has been documented for the patient 04/06/2025 3:07 PM EDT documented as of this encounter Care Teams Manager Environmental Health And Safety Relationship Specialty Start Date End Date Chata Vargas MOISTURE CONDITIONER OPERATOR-OFFICE EXECUTIVE [address] [place] [address] PCP - General Internal Medicine 03/04/23 documented as of this encounter
--- OUTSIDE RECORDS SUMMARY | 2025-05-29 07:53 | XMS_ITS | Encounter Summary ---
Author Organization [facility] s tem Address [id number] [address] [place] [address] Care Team Providers Care All Source Analyst Name Role Phone Chata Vargas APRN-FIREPROOF DOOR MAKER Primary Care Provider + Encounter Details Date Type Department Care Team (Late st Contact Info) Description 06/28/2023 Telephone [facility] Internal Medicine - Family Medicine [address] [place] [address] Chata Vargas APRN-FIREPROOF DOOR MAKER [address] [place] [address] Social History Tobacco Use Types Packs/Day Years [...] encounter Miscellaneous Notes * Telephone Encounter - Adrianne Ruedanett - 06/28/2023 9:43 AM EDT Patient called and states her skin issues is not getting better and would like something else called in. documented in this encounter Plan of Treatment Upcoming Encounters Date Type Department Care Team (Late st Contact Info) Description 06/21/2025 4:20 PM EDT Office Visit [facility] Internal Medicine - Family Medicine [address] [place] [address] Chata Vargas AEROGRAPHER-FIREPROOF DOOR MAKER [address] [place] [address] documented as of this encounter Visit Diagnoses Not on filedocumented in this encounter Additional Health Concerns Assessment Noted Time PHQ-9 Depression Total Score: 0 06/22/20 3:18 PM EDT documented as of this encounter Care Teams All Source Analyst Relationship Specialty Start Date End Date Chata Vargas, AEROGRAPHER-FIREPROOF DOOR MAKER [address] [place] [address] PCP - General Internal Medicine 03/04/23 documented as of this encounter
--- OUTSIDE RECORDS SUMMARY | 2025-05-29 07:53 | XMS_ITS | Encounter Summary ---
Author Organization [facility] Sys tem Address [id number] [address] [place] [address] Care Team Providers Care Outside Salesperson Name Role Phone Alicia, Chata Brown APRN-NEPHROLOGIST Primary Care Provider + Encounter Details Date Type Department Care Team (Late st Contact Info) Description 05/10/2024 Orders Only [facility] Internal Medicine - Family Medicine [address] [facility] [place] [id number] Ref Prov, [place] [address] Social History Tobacco Use Types Packs/Day Years [...] Medicine - Family Medicine [address] [address] Chata Vargas, CIVIL ENGINEER IN TRAINING-NEPHROLOGIST [address] [place] [address] documented as of this encounter Procedures Procedure Name Priority Date/Time Associated Diagnosis Comments MAMMOGRAPHY Routine 05/10/2024 2:49 PM EDT documented in this encounter Results * HM MAMMOGRAPHY (05/10/2024 2:49 PM EDT) Anatomical Region Laterality Modality Other us Not In System Ref Prov HEALTH MAINTENANCE Final Result documented in this encounter Visit Diagnoses Not on filedocumented in this encounter Additional Health Concerns Assessment Noted Time PHQ-9 Depression Total Score: 0 06/22/20 3:18 PM EDT documented as of this encounter Care Teams Outside Salesperson Relationship Specialty Start Date End Date Chata Vargas, CIVIL ENGINEER IN TRAINING-NEPHROLOGIST [address] [place] [address] PCP - General Internal Medicine 03/04/23 documented as of this encounter
--- OUTSIDE RECORDS SUMMARY | 2025-05-29 07:53 | XMS_ITS | Encounter Summary ---
Author Organization [employer] Sys tem Address [id number] [address] [place] [address] Care Team Providers Care Tint Layer Name Role Phone Alicia Chata Brown APRN-MAINTENANCE MGR Primary Care Provider + Reason for Visit * Reason Onset Date Comments Med Refill 02/07/2025 Encounter Details Date Type Department Care Team (Late st Contact Info) Description 02/07/2025 Refill [facility] Internal Medicine - Family Medicine [address] [place] [address] Nargis Davies CMA Social History Tobacco Use [...] Medicine - Family Medicine [address] [place] [address] Chata Vargas REGIONAL SALES CONSULTANT-MAINTENANCE MGR [address] [facility] [address] documented as of this encounter Visit Diagnoses Not on filedocumented in this encounter Additional Health Concerns Assessment Noted Time PHQ-9 Depression Total Score: 0 05/18/20 24 11:33 AM EDT documented as of this encounter Care Teams Tint Layer Relationship Specialty Start Date End Date Chata Vargas REGIONAL SALES CONSULTANT-MAINTENANCE MGR [address] [place] [address] PCP - General Internal Medicine 03/04/23 documented as of this encounter
--- OUTSIDE RECORDS SUMMARY | 2025-05-29 07:53 | XMS_ITS | Encounter Summary ---
Author Organization [facility] tem Address [id number] [address] [place] [address] Care Team Providers Care Financial Aid Director Name Role Phone Chata Vargas APRN-HEAD TRIMMER Primary Care Provider + Encounter Details Date Type Department Care Team (Late st Contact Info) Description 04/11/2025 Results Follow-Up [facility] Internal Medicine - Family Medicine [address] [place] [address] Chata Vargas APRN-HEAD TRIMMER [address] [facility] [address] Lipid profile, Comprehensive metabolic panel, CBC auto differential, Additional followed-up results: 2 Social History Tobacco Use Types Packs/Day Years [...] 06/22/2023 PHQ-2 Answer Date Recorded Total Score 2 04/05/2025 PRAPARE - Transportation Answer Date Re corded [...] got money to buy more. Never True 04/05/2025 Within the past 12 months th e food we bought just didn't last and we didn't have money to get more. Never True 04/05/2025 Purpose - Life Answer Date Recorded Purpose [...] Medicine - Family Medicine [address] [place] [address] Chata Vargas AUDIO VISUAL EQUIPMENT RENTAL CLERK-HEAD TRIMMER [address] [facility] Hospital[facility] [address] documented as of this encounter Visit Diagnoses Not on filedocumented in this encounter Additional Health Concerns Assessment Noted Time PHQ-9 Depression Total Score: 2 04/05/20 11:33 AM EDT A Body Mass Index follow-up plan has been documented for the patient 04/06/2025 3:07 PM EDT documented as of this encounter Care Teams Financial Aid Director Relationship Specialty Start Date End Date Chata Vargas, AUDIO VISUAL EQUIPMENT RENTAL CLERK-HEAD TRIMMER [address] [place] [address] PCP - General Internal Medicine 03/04/23 documented as of this encounter
--- OUTSIDE RECORDS SUMMARY | 2025-05-29 07:53 | XMS_ITS | Patient Health Record ---
Author Organization [facility] Address [address], [place] [id number] Care Team Providers Care Special Collections Librarian Name Role Phone Jessica Campa Unavailable [phone] Reason For Referral No Information Social History Sex Assigned At : Social History Observation Description Sex Assigned At Female Plan Of Treatment No Information
--- OUTSIDE RECORDS SUMMARY | 2025-05-29 07:53 | XMS_ITS | Clinical Summary ---
Author Organization [employer] tem Address [id number] [address] [place] [address] Care Team Providers Care Cement Finisher Name Role Phone Chata Vargas APRN-PRECISION ASSEMBLY INSPECTOR Primary Care Provider + Allergies Active Allergy Reactions Criticality Noted Date Comments Metronidazole Rash Low 06/22/2023 Medications traZODone (DESYREL) 100 mg tabletIndicatio ns:Dysthymia Take 1 tablet (100 mg total) by mouth nightly. 90 tablet 1 3 Active lisinopriL (PRINIVIL,ZESTR IL) 40 mg tablet Take 1 tablet (40 mg total) by mouth in the morning. 90 tablet 1 5 Active bisoprolol (ZEBETA) 10 mg tablet TAKE 1 TABLET(10 MG) BY MOUTH IN THE MORNING 30 tablet 1 5 Active amLODIPine (NORVASC) 5 mg tablet Take 1 tablet (5 mg total) by mouth in the morning. 30 tablet 1 5 Active carBAMazepine (TEGretol) 200 mg tablet TAKE 1 TABLET BY MOUTH IN THE MORNING AND 1 TABLET BEFORE BEDTIME 60 tablet 5 05/11/20 25 Discontinue d(Patient Stopped On Own) lisinopriL (PRINIVIL,ZESTR IL) 20 mg tablet TAKE 1 TABLET(20 MG) BY MOUTH IN THE MORNING 90 tablet 5 05/11/20 25 Discontinue d(Therapy completed) Active Problems Problem Noted Date Diagnosed Date Obstructive sleep apnea 05/15/2025 Essential hypertension 06/10/2020 Drug-induced hypokalemia 12/28/2019 Hypertriglyceridemia 11/06/2016 History of palpitations 06/08/2016 Encounters Date Type Department Care Team Description 05/25/2025 8:55 AM EDT - 05/25/2025 11:59 PM EDT Hospital [facility] [address] [place] [address] Palpitations Discharge Disposition: Home 05/25/2025 Travel 05/24/2025 Refill [facility] [address] [place] [address] Nargis Davies, [facility] 05/23/2025 Travel 05/22/2025 Refill [facility] [address] [place] [address] Chata Vargas, OFFICE SUPPORT-PRECISION ASSEMBLY INSPECTOR 05/22/2025 Orders Only [facility] [address] [place] [address] Chata Vargas, OFFICE SUPPORT-PRECISION ASSEMBLY INSPECTOR 05/22/2025 Refill [facility] [address] [place] [address] Chata Vargas, OFFICE SUPPORT-PRECISION ASSEMBLY INSPECTOR 05/11/2025 11:00 AM EDT Office Visit [facility] [address] [place] [address] Chata Vargas, OFFICE SUPPORT-PRECISION ASSEMBLY INSPECTOR Essential hypertension (Primary Dx); Palpitations; Obstructive sleep apnea; Oculomotor nerve palsy, unspecified laterality 05/10/2025 Travel 04/11/2025 [facility] [address] [place] [address] Chata Vargas, OFFICE SUPPORT-PRECISION ASSEMBLY INSPECTOR Lipid profile, Comprehensive metabolic panel, CBC auto differential, Additional followed-up results: 2 04/05/2025 11:40 AM EDT Office Visit [facility] [address] [place] [address] Chata Vargas APRN-GRICEL Eye pressure (Primary Dx); Hypertriglyceridemia; Essential hypertension; Fatigue, unspecified type; Special screening for malignant neoplasm of colon; Overweight (BMI 25.0-29.9) 04/05/2025 Refill [facility] [address] [place] [address] Chata Vargas APRN-CNP 04/05/2025 Travel 04/02/2025 Telephone [facility] [address] [place] [address] Tamiko Schofield CMA from Last 3 Months Immunizations Immunization Administration Dates Next Due Influenza, Im Trivalent Preservative 07/19/2017 Influenza, Injectable, Quadrivalent 06/18/2022 Tdap 07/27/2011 Family History Medical History Relation Name Comments Alcohol abuse Father Dad Diabetes Father Dad Hypertension Father Dad Arthritis Mother Mom Osteoarthritis Mother Mom Thrombosis Mother Mom Breast cancer Neg Hx Relation Name Status Comments Brother Alive Father Dad Alive Mother Mom Alive Social History Tobacco Use Types Packs/Day Years Used Date Smoking Tobacco: Never Smokeless Tobacco: Never Tobacco Cessation:Counseling Given: Not Answered Alcohol Use Standard Drinks/Week Comments Yes 6 [...] Sign Reading Time Taken Comments Blood Pressure 150/96 05/11/2025 11:14 AM EDT Pulse 99 05/11/2025 11:14 AM EDT Temperature 36.7 C (98 F) 05/11/2025 11:14 AM EDT Respiratory Rate 18 05/11/2025 11:14 AM EDT Oxygen Saturation 98% 05/11/2025 11:14 AM EDT Inhaled Oxygen Concentration - - Weight 62.2 kg (137 lb 3.2 oz) 05/11/2025 11:14 AM EDT Height 157.5 cm (5' 2.01 ) 05/11/2025 11:14 AM E DT Body Mass Index 25.09 05/11/2025 11:14 AM EDT Plan of Treatment Upcoming Encounters Date Type Department Care Team (Late st Contact Info) Description 06/21/2025 4:20 PM EDT Office Visit [facility] [address] [place] [address] Chata Vargas, OFFICE SUPPORT-PRECISION ASSEMBLY INSPECTOR [address] [facility] [address] [address] Health Maintenance Due Date Last Done Comments DTaP,Tdap and Td Vaccines (2 - Td or Tdap) 07/27/2021 07/27/2011 Mammogram 05/10/2025 05/10/2024, 04/14, 11/16/2022, Additional history exists Influenza Vaccine 05/14/2025 06/18/2022, 07/19/2017 Adult BMI Follow Up Plan 04/05/2026 04/05/2025 Adult BMI Screening 05/11/2026 05/11/2025 Depression Screening 05/11/2026 05/11/2025 Tobacco Screening 05/11/2026 05/11/2025 Pap Smear 03/08/2028 03/08/2025, 02/12, 03/07/2024, Additional history exists COVID-19 Vaccine Discontinued 11/07/2020, 10/17/2020 Medical Devices Not on file Procedures Procedure Name Priority Date/Time Associated Diagnosis Comments COLOGUARD NON-[facility] Routine 04/13/2025 6:40 AM EDT Special screening for malignant neoplasm of colon TSH WITH REFLEX Routine 04/05/2025 12:24 PM EDT Hypertriglyceridemia CBC WITH AUTO DIFFERENTIAL Routine 04/05/2025 12:24 PM EDT Fatigue, unspecified type COMPREHENSIVE METABOLIC PANEL Routine 04/05/2025 12:24 PM EDT Essential hypertension LIPID PROFILE Routine 04/05/2025 12:24 PM EDT Hypertriglyceridemia HM MAMMOGRAPHY Routine 05/10/2024 2:49 PM EDT from Last 3 Months or Most Recently Relevant to Health Maintenance Results * Cologuard [facility] (04/13/2025 6:40 AM EDT) EXTERNAL COLOGUARD Negative Negative 2024 1:19 PM EDT [employer] (CLIA #:[id number]) Comment: The Cologuard (TM) test was performed on this specimen. NEGATIVE TEST RESULT. A negative Cologuard result indicates a low likelihood that a colorectal cancer (CRC) or advanced adenoma (adenomatous polyps with more advanced pre-malignant features) is present. The chance that a person with a negative Cologuard test has a colorectal cancer is less than 1 in 1500 (negative predictive value >99.9%) or has an advanced adenoma is less than 5.3% (negative predictive value 94.7%). These data are based on a prospective cross-sectional study of 10,000 individuals at average risk for colorectal cancer who were screened with both Cologuard and colonoscopy. (Rob Larios al, N Engl J Med 2014;370(14):1286- 1297) The normal value (reference range) for this assay is negative. COLOGUARD RE-SCREENING RECOMMENDATION: Periodic colorectal cancer screening is an important part of preventive healthcare for asymptomatic individuals at average risk for colorectal cancer. Following a negative Cologuard result, the [place] [employer] and U.S. Multi-Society Task Force screening guidelines recommend a Cologuard re-screening interval of 3 years. References: [place] [employer] Guideline for Colorectal Cancer Screening: https://www.cancer.org/cancer/hiwhf-yvwevo-bvjeuj/cinfeqsqz-yfvtwcdcs-uqckesm/ac s-rec ommendations.html.; Harshal DK, Jayant ZAVALA, Mati BrushK, Colorectal Cancer Screening: Recommendations for Physicians and Patients from the U.S. Multi-Society Task Force on Colorectal Cancer Screening , Am J Gastroenterology 2017; 112:5851-2211. TEST DESCRIPTION: Composite algorithmic analysis of stool DNA-biomarkers with hemoglobin immunoassay. Quantitative values of individual biomarkers are not reportable and are not associated with individual biomarker result reference ranges. Cologuard is intended for colorectal cancer screening of adults of either sex, 45 years or older, who are at average-risk for colorectal cancer (CRC). Cologuard has been approved for use by the U.S. FDA. The performance of Cologuard was established in a cross sectional study of average-risk adults aged 50-84. Cologuard performance in patients ages 45 to 49 years was estimated by sub-group analysis of near-age groups. Colonoscopies performed for a positive result may find as the most clinically significant lesion: colorectal cancer [4.0%], advanced adenoma (including sessile serrated polyps greater than or equal to 1cm diameter) [20%] or non- advanced adenoma [31%]; or no colorectal neoplasia [45%]. These estimates are derived from a prospective cross-sectional screening study of 10,000 individuals at average risk for colorectal cancer who were screened with both Cologuard and colonoscopy. (Rob Larios al, N Engl J Med 2014;370(14):6831-5144.) Cologuard may produce a false negative or false positive result (no colorectal cancer or precancerous polyp present at colonoscopy follow up). A negative Cologuard test result does not guarantee the absence of CRC or advanced adenoma (pre-cancer). The current Cologuard screening interval is every 3 years. ([place] [employer] and U.S. Multi-Society Task Force). Cologuard performance data in a 10,000 patient pivotal study using colonoscopy as the reference method can be accessed at the following location: www.[employer].com/results. Additional description of the Cologuard test process, warnings and precautions can be found at www.cologuard.com. Stool specimen (specimen) Rectum structure / Unknown 04/13/2025 6:40 AM EDT 04/14/2025 1:18 PM EDT [facility] Final Re sult [employer] (CLIA #:[id number]) [address] [place] [address], [place] [phone] * TSH with Reflex (04/05/2025 12:24 PM EDT) TSH 1.18 0.49 - 4.67 uIU/mL 04/05/2025 6:53 PM EDT [facility] Blood Venous blood / Unknown 04/05/2025 12:24 PM EDT 04/05/2025 12:24 PM EDT [facility]ata [facility]as [facility] B[facility] ORDERABLES Fin al Result [facility] [address] [place] [address], [place] [phone] * CBC auto differential (04/05/2025 12:24 PM EDT) [facility] WBC 7.5 4 - 11 x10E9/L 04/05/2025 6:33 PM EDT [facility] RBC Count 4.31 3.8 - 5.2 X10E12/L 04/05/2025 6:33 PM EDT [facility] Hemoglobin 12.7 11.7 - 15.5 g/dL 04/05/2025 6:33 PM EDT [facility] Hematocrit 38.8 35 - 47 % 04/05/2025 6:33 PM EDT [facility] MCV 90 80 - 100 fL 04/05/2025 6:33 PM EDT [facility] MCH 29.4 27 - 34 pg 04/05/2025 6:33 PM EDT [facility] MCHC 32.7 32 - 36 g/dL 04/05/2025 6:33 PM EDT [facility] RDW 14.3 11.5 - 15 % 04/05/2025 6:33 PM EDT [facility] Platelet Count 338 150 - 450 X10E9/L 04/05/2025 6:33 PM EDT [facility] MPV 7.1 7 - 12 fL 04/05/2025 6:33 PM EDT [facility] Neutrophils % 65.9 % 04/05/2025 6:33 PM EDT [facility] Lymphocytes % 26.6 % 04/05/2025 6:33 PM EDT [facility] Monocytes % 5.7 % 04/05/2025 6:33 PM EDT [facility] Eosinophils % 1.1 % 04/05/2025 6:33 PM EDT [facility] Basophils % 0.7 % 04/05/2025 6:33 PM EDT [facility] Neutrophils Absolute (A) 5.0 1.5 - 6.6 10*3/uL 04/05/2025 6:33 PM EDT [facility] Lymphocytes Absolute 2.0 1.0 - 3.5 10*3/uL 04/05/2025 6:33 PM EDT [facility] Monocytes Absolute 0.4 0.0 - 0.9 10*3/uL 04/05/2025 6:33 PM EDT [facility] Eosinophils Absolute 0.1 0.0 - 0.4 10*3/uL 04/05/2025 6:33 PM EDT [facility] Basophils Absolute 0.1 0.0 - 0.2 10*3/uL 04/05/2025 6:33 PM EDT [facility] Differential Type AUTOMATED DIFFERENTIAL 04/05/2025 6:33 PM EDT [facility] Blood Venous blood / Unknown 04/05/2025 12:24 PM EDT 04/05/2025 12:24 PM EDT us Chata Vargas OFFICE SUPPORT-PRECISION ASSEMBLY INSPECTOR LAB BLOOD ORDERABLES Fin al Result [facility] [address] [place] [address], * (ABNORMAL) Lipid profile (04/05/2025 12:24 PM EDT) CHOLESTEROL 187 150 - 200 mg/dL 04/05/2025 6:49 PM EDT [facility] TRIGLYCERIDE 264(H) 27 - 150 mg/dL 04/05/2025 6:49 PM EDT [facility] HDL CHOLESTEROL 60 >39 mg/dL 6:49 PM EDT [facility] Comment: HDL <40 mg/dL - High Risk HDL > or = 40mg/dL- Desirable HDL >60 mg/dL - Negative Risk LDL (CALC) 74 <130 mg/dL 04/05/2025 6:49 PM EDT [facility] Comment: LDL <100 mg/dL - Desirable LDL >160 mg/dL - High Risk CHOLESTEROL:HDL 3.1 1.0 - 5.0 6:49 PM EDT [facility] VERY LOW LIPOPROTEIN 53(H) 0 - 30 mg/dL 04/05/2025 6:49 PM EDT [facility] Blood Venous blood / Unknown 04/05/2025 12:24 PM EDT 04/05/2025 12:24 PM EDT Chata Vargas OFFICE SUPPORT-PRECISION ASSEMBLY INSPECTOR LAB BLOOD ORDERABLES Fin al Result [facility] [address] [place] [address], [place] [phone] * (ABNORMAL) Comprehensive metabolic panel (04/05/2025 12:24 PM EDT) SODIUM 139 134 - 146 mmol/L 04/05/2025 6:49 PM EDT [facility] POTASSIUM 3.7 3.5 - 5.0 mmol/L 04/05/2025 6:49 PM EDT [facility] CHLORIDE 105 98 - 109 mmol/L 04/05/2025 6:49 PM EDT [facility] CARBON DIOXIDE 24 22 - 32 mmol/L 04/05/2025 6:49 PM EDT [facility] ANION GAP 10 5 - 15 mmol/L 04/05/2025 6:49 PM EDT [facility] BLOOD UREA NITROGEN 15 5 - 23 mg/dL 04/05/2025 6:49 PM EDT [facility] CREATININE 0.64 0.40 - 1.00 mg/dL 04/05/2025 6:49 PM EDT [facility] Comment:METHOD TRACEABLE TO IDMS STANDARD GLUCOSE 113(H) 65 - 99 mg/dL 04/05/2025 6:49 PM EDT [facility] CALCIUM 9.2 8.5 - 10.5 mg/dL 04/05/2025 6:49 PM EDT [facility] TOTAL PROTEIN 7.3 6.0 - 8.0 g/dL 04/05/2025 6:49 PM EDT [facility] ALBUMIN 4.7 3.2 - 5.3 g/dL 04/05/2025 6:49 PM EDT [facility] ALKALINE PHOSPHATASE 42 39 - 130 U/L 04/05/2025 6:49 PM EDT [facility] AST 15 <=41 U/L 04/05/2025 6:49 PM EDT [facility] ALT 15 <=31 U/L 04/05/2025 6:49 PM EDT [facility] BILIRUBIN,TOTAL 0.4 0.3 - 1.2 mg/dL 04/05/2025 6:49 PM EDT [facility] EGFR Non-Race Dependent >90 >=60 ml/min/1.7 3sq.m 04/05/2025 6:49 PM EDT [facility] Comment: Reported eGFR is based on the CKD-EPI 2020 equation that does not use a race coefficient. Blood Venous blood / Unknown 04/05/2025 12:24 PM EDT 04/05/2025 12:24 PM EDT us Chata Vargas OFFICE SUPPORT-PRECISION ASSEMBLY INSPECTOR LAB BLOOD ORDERABLES Fin al Result [facility] [address] [place] [address], [place] [phone] * HM MAMMOGRAPHY (05/10/2024 2:49 PM EDT) Anatomical Region Laterality Modality Other us Not In System Ref Prov HEALTH MAINTENANCE Final Result from Last 3 Months or Most Recently Relevant to Health Maintenance Insurance ANTH Care Teams Cement Finisher Relationship Specialty Start Date End Date Chata Vargas, OFFICE SUPPORT-PRECISION ASSEMBLY INSPECTOR [address] [place] [address] PCP - General Internal Medicine 03/04/23
--- OUTSIDE RECORDS SUMMARY | 2025-05-29 07:53 | XMS_ITS | Encounter Summary ---
Author Organization [facility] Sys tem Address [id number] [address] [place] [address] Care Team Providers Care Track Service Worker Name Role Phone Chata Vargas APRN-PLISSE MACHINE OPERATOR HELPER Primary Care Provider + Encounter Details Date Type Department Care Team (Late st Contact Info) Description 09/11/2024 Orders Only [facility] - [facility] Medicine [address] [place] [address] Dalton Reyes, DO [address] [place] [address] Social History Tobacco Use Types Packs/Day Years [...] - Family Medicine [address] [place] [address] Chata Vargas, FAMILY SUPPORT SPECIALIST-PLISSE MACHINE OPERATOR HELPER [address] [facility] [place] [address] documented as of this encounter Visit Diagnoses Not on filedocumented in this encounter Additional Health Concerns Assessment Noted Time PHQ-9 Depression Total Score: 0 05/18/20 24 11:33 AM EDT documented as of this encounter Care Teams Track Service Worker Relationship Specialty Start Date End Date Chata Vargas, FAMILY SUPPORT SPECIALIST-PLISSE MACHINE OPERATOR HELPER [address] [place] [address] PCP - General Internal Medicine 03/04/23 documented as of this encounter
--- OUTSIDE RECORDS SUMMARY | 2025-05-29 07:53 | XMS_ITS | Encounter Summary ---
Author Organization [employer] tem Address [id number] [address] [place] [address] Care Team Providers Care [employer] Psychiatrist Name Role Phone Alicia Chata Brown APRN-FINISHER TAILOR APPRENTICE Primary Care Provider + Encounter Details Date Type Department Care Team (Latest Contact Info) Description 05/23/2025 Travel Social History Tobacco Use Types Packs/Day [...] Medicine - Family Medicine [address] [place] [address] Chata Vargas APRN-FINISHER TAILOR APPRENTICE [address] [place] [address] documented as of this encounter Visit Diagnoses Not on filedocumented in this encounter Additional Health Concerns Assessment Noted Time PHQ-9 Depression Total Score: 1 05/11/20 11:13 AM EDT A Body Mass Index follow-up plan has been documented for the patient 04/06/2025 3:07 PM EDT documented as of this encounter Care Teams [employer] Psychiatrist Relationship Specialty Start Date End Date Chata Vargas APRN-CNP [address] [place] [address] PCP - General Internal Medicine 03/04/23 documented as of this encounter
[2025-05-29 08:09] LABS: Hematocrit 38.6 % (36.0-48.0); Hemoglobin 13.1 g/dL (12.0-16.0); Immature Granulocytes Abs Auto 0.01 10^3/uL (0.00-0.03); Immature Granulocytes Pct Auto 0.2 % (0.0-0.5); Lymphocytes Absolute Auto 1.6 10^3/uL (1.2-3.8); Mean Corpuscular HGB Conc 33.9 g/dL (29.9-35.2); Mean Corpuscular Hemoglobin 30.3 pg (26.7-34.0); Mean Corpuscular Volume 89.4 fL (81.0-99.0); Platelet Count 351 10^3/uL (150-450); Red Blood Count 4.32 10^6/uL (4.20-5.40); White Blood Count 6.2 10^3/uL (4.0-11.0)
--- NOTE | 2025-05-29 08:13 | ED.GENADUL1 ---
HPI HPI - General Adult General Chief complaint: Recheck/Abnormal Lab/Rx Stated complaint: HYPERTENSION Time Seen by Provider: 05/29/25 07:46 Source: patient Mode of arrival: walk-in Limitations: no limitations History of Present Illness HPI narrative: The patient is a 44-year-old female who has a history of recent increase in her blood pressure medication after her blood pressure was not controlled, is coming to the ER with few days history of headache mostly frontal associate with no nausea no vomiting, patient mentioned that also she has been she has been feeling weak and tired she did measure her blood pressure at home and it was 200 systolic There is no weakness numbness tingling or any other concerns The patient gave the pain right now 3 out of 10 Related Data Home Medications ?Medication ?Instructions ?Recorded ?Confirmed amlodipine 5 mg tablet 5 mg PO DAILY 05/29/25 05/29/25 lisinopril 40 mg tablet 40 mg PO DAILY 05/29/25 05/29/25 Allergies Allergy/AdvReac Type Severity Reaction Status Date / Time No Known Drug Allergies Allergy Verified 05/29/25 07:39 Opioid HPI Opioid Management Most Recent Opioid Data: Last Pain Scale 4 Today, 07:47 Review of Systems ROS Status of ROS 10 or more systems reviewed and unremarkable except as noted in history and below PFSH PFSH Social History Little interest or pleasure in doing things: not at all Feeling down, depressed, or hopeless: not at all Exam Narrative Exam Narrative: Nurses notes and vital signs reviewed and patient is not hypoxic. General: Well-appearing and in no apparent distress. Skin: Warm, dry, no pallor noted. No rash. Head: Normocephalic, atraumatic. Neck: Supple, non-tender. Cardiovascular: Regular Rate and Rhythm without murmur, gallop or rub. Respiratory: No accessory muscle use or respiratory distress. Lungs are clear to auscultation, no wheezing, rales or rhonchi Chest Wall: no tenderness Musculoskeletal: normal ROM, no calf or popliteal tenderness, no lower extremity edema/swelling GI: Abdomen is soft, non-distended. Normal bowel sounds. No masses appreciated. No tenderness to palpation. No rebound, guarding, or rigidity noted. Neurological: A&O x4. No cranial nerve dysfunction observed. No truncal ataxia. Moves all extremities. Sensation intact. Psychiatric: Cooperative and interactive. Normal mood and affect. Constitutional Vital Signs, click to edit/add: Last Vital Signs Temp 97.7 F 05/29/25 07:39 Pulse 75 05/29/25 10:10 Resp 17 05/29/25 10:10 BP 160/102 H 05/29/25 10:00 Pulse Ox 100 05/29/25 10:10 O2 Del Method Room Air 05/29/25 07:39 Course Vital Signs Vital signs: Vital Signs Temperature 97.7 F 05/29/25 07:39 Pulse Rate 70 05/29/25 07:39 Respiratory Rate 14 05/29/25 07:39 Blood Pressure 189/129 H 05/29/25 07:39 Pulse Oximetry 97 05/29/25 07:39 Oxygen Delivery Method Room Air 05/29/25 07:39 Temperature 97.7 F 05/29/25 07:39 Pulse Rate 75 05/29/25 10:10 Respiratory Rate 17 05/29/25 10:10 Blood Pressure 160/102 H 05/29/25 10:00 Pulse Oximetry 100 05/29/25 10:10 Oxygen Delivery Method Room Air 05/29/25 07:39 Medical Decision Making MDM Narrative Medical decision making narrative: The patient EKG in the ER showing sinus rhythm with a heart rate of [address] elevation or depression The patient CBC and chemistry showed no acute pathology Troponin was negative and test as well The patient initially her blood pressure responded to only control of headache with Toradol and her blood pressure went down to 139 systolic, The patient CT head shows possible PRES with a multifocal hypoattenuation noted that may raise the possibility of PRES . The patient case was discussed with the teleneurologist Dr. Pacheco and he recommended the patient need her blood pressure control with nicardipine drip as well as MRI done in the inpatient Per medical is at full capacity and I did call [facility] and Dr. Jiang recommended that the patient need to be admitted for blood pressure control and MRI and he mentioned that we can do this in our facility as he does not suspect the patient will need more inpatient management more than that The patient case discussed with and he agreed on admitting the patient for further evaluation of her blood pressure The patient initially was treated with hydralazine 1 dose that did not help her blood pressure nicardipine drip was started Lab Data Labs: Lab Results 05/29/25 Range/Units 07:58 WBC 6.2 (4.0-11.0) 10^3/uL RBC 4.32 (4.20-5.40) 10^6/uL Hgb 13.1 (12.0-16.0) g/dL Hct 38.6 (36.0-48.0) % MCV 89.4 (81.0-99.0) fL MCH 30.3 (26.7-34.0) pg MCHC 33.9 (29.9-35.2) g/dL RDW 13.0 (11.0-15.0) % Plt Count 351 (150-450) 10^3/uL MPV 8.3 L (9.5-13.5) fL Neut % (Auto) 65.6 (43.0-75.0) % Lymph % (Auto) 26.0 (20.5-60.0) % Haines % (Auto) 5.8 (1.7-12.0) % Eos % (Auto) 1.9 (0.9-7.0) % Baso % (Auto) 0.5 (0.2-2.0) % Neut # (Auto) 4.1 (1.4-6.5) 10^3/uL Lymph # (Auto) 1.6 (1.2-3.8) 10^3/uL Haines # (Auto) 0.4 (0.3-0.8) 10^3/uL Eos # (Auto) 0.1 (0.0-0.7) 10^3/uL Baso # (Auto) 0.0 (0.0-0.1) 10^3/uL Abs Immat Gran (auto) 0.01 (0.00-0.03) 10^3/uL Imm/Tot Granulo (auto) 0.2 (0.0-0.5) % PT 10.6 (9.0-11.6) sec INR 1.00 Sodium 141 (136-145) mmol/L Potassium 3.9 (3.5-5.1) mmol/L Chloride 104 (98-107) mmol/L Carbon Dioxide 25.6 (21.0-32.0) mmol/L Anion Gap 15.3 BUN 12.0 (7.0-18.0) mg/dL Creatinine 0.61 (0.55-1.02) mg/dL Est GFR ( Amer) >60 (>=60 mL/min/1.73m^2) Est GFR (Non-Af Amer) >60 (>=60 mL/min/1.73m^2) BUN/Creatinine Ratio 19.7 Glucose 95 (74-106) mg/dL Calcium 9.1 (8.5-10.1) mg/dL Total Bilirubin 0.5 (0.2-1.0) mg/dL AST 15 (15-37) U/L ALT 27 (14-59) U/L Alkaline Phosphatase 55 (46-116) U/L Troponin I High Sens <4.0 L (4.0-51.3) pg/mL Total Protein 7.9 (6.4-8.2) g/dL Albumin 4.2 (3.4-5.0) g/dL Globulin 3.7 g/dL Albumin/Globulin Ratio 1.1 Serum HCG, Qual Negative (NEGATIVE) Discharge Plan Discharge Chief Complaint: Recheck/Abnormal Lab/Rx Clinical Impression: PRES (posterior reversible encephalopathy syndrome), Hypertensive emergency Patient Disposition: Admitted As Inpatient Time of Disposition Decision: 10:51
[2025-05-29 08:22] LABS: INR 1.00; Prothrombin Time 10.6 sec (9.0-11.6)
[2025-05-29] MEDS: KETOROLAC TROMETHAMINE 30 MG/ML VIAL 15 MG IVP (08:23)
[2025-05-29 08:31] LABS: Alanine Aminotransferase 27 U/L (14-59); Albumin Globulin Ratio 1.1; Albumin Level 4.2 g/dL (3.4-5.0); Alkaline Phosphatase 55 U/L (46-116); Anion Gap 15.3; Aspartate Amino Transferase 15 U/L (15-37); Blood Urea Nitrogen 12.0 mg/dL (7.0-18.0); Calcium 9.1 mg/dL (8.5-10.1); Carbon Dioxide 25.6 mmol/L (21.0-32.0); Chloride 104 mmol/L (98-107); Estimated GFR (African America >60 (>=60 mL/min/1.73m^2); Estimated GFR (Non-African Ame >60 (>=60 mL/min/1.73m^2); Globulin 3.7 g/dL; Glucose 95 mg/dL (74-106); Potassium 3.9 mmol/L (3.5-5.1); Sodium 141 mmol/L (136-145); Total Protein 7.9 g/dL (6.4-8.2)
[2025-05-29] MEDS: HYDRALAZINE HCL 20 MG/ML VIAL 5 MG IVP (09:54)
[2025-05-29] MEDS: NICARDIPINE IN NACL, ISO-OSM 40 MG/200 ML PIGGYBACK 25 MG IV (10:59)
--- OUTSIDE RECORDS SUMMARY | 2025-05-29 11:43 | XMS_ITS | Encounter Summary ---
Author Organization [facility] Address [facility] [id number] [address] [place] [address] Care Team Providers Care Beach Expert Name Role Phone Alicia Chata Brown APRN-APPLICATIONS CHEMIST Primary Care Provider + Encounter Details Date Type Department Care Team (Late st Contact Info) Description 05/29/2025 11:43 AM EDT - Present Emergency [facility] Tele Stroke [address] [place] [address] Social History Tobacco Use Types Packs/Day Years [...] Medicine - Family Medicine [address] [place] [address] Chata Vargas MARBLEIZER-APPLICATIONS CHEMIST [address] [place] [address] documented as of this encounter Visit Diagnoses Not on filedocumented in this encounter Additional Health Concerns Assessment Noted Time PHQ-9 Depression Total Score: 1 05/11/20 25 11:13 AM EDT A Body Mass Index follow-up plan has been documented for the patient 04/06/2025 3:07 PM EDT documented as of this encounter Care Teams Beach Expert Relationship Specialty Start Date End Date Chata Vargas MARBLEIZER-APPLICATIONS CHEMIST [address] [place] [address] PCP - General Internal Medicine 03/04/23 documented as of this encounter
--- NOTE | 2025-05-29 12:11 | MR_ITS ---
The [address] [address] Patient Name: KALINA HAMMONDS MRN: [id number] date: 1980 Sex: F Assigned Patient Location: MS Current Patient Location: [place] Accession/Order Number: [id number] Exam Date: 05/29/2025 16:00 Report Date: 05/29/2025 17:31 At the request of: EVA STEWART MD Procedure: MR head/brain wo/w con MR head/brain wo/w con 05/29/2025 5:00 PM SIGN AND SYMPTOMS: ^PRES vs MS PROTOCOL: Multiplanar multisequence MR images of the brain with and without IV contrast CONTRAST: 13 mL of Dotarem COMPARISON: 05/29/2025 FINDINGS: Extra axial spaces: There is mild global volume loss which is advanced for the patient's age. Hemorrhage: None. Ventricular system: Within normal limits. Basal cisterns: Within normal limits and not effaced. Cerebral parenchyma: T2 and FLAIR hyperintense foci are noted in the periventricular, subcortical, and juxtacortical white matter. There is no accompanying diffusion restriction or abnormal postcontrast enhancement. Imaging findings suggest multiple sclerosis. Midline shift: None.. Cerebellum: Within normal limits. Brainstem: Within normal limits. OTHER: Calvarium: Normal marrow signal. Vascular system: Satisfactory flow voids within the anterior and posterior circulation. Visualized Paranasal sinuses: Within normal limits. Visualized Orbits: Within normal limits. Visualized upper cervical spine: Within normal limits. Sella and skull base: Within normal limits. MR/MR head/brain wo/w con IMPRESSION: T2 and FLAIR hyperintense foci are noted in the periventricular, subcortical, and juxtacortical white matter. There is no accompanying diffusion restriction or abnormal postcontrast enhancement. There is accompanying mild global volume loss which is advanced for the patient's age. Imaging findings suggest multiple sclerosis. No evidence to suggest PRES. Impression dictated by: Darrin Morrison M.D. 05/29/2025 5:31 PM Dictation Location: [place] [address] Electronically authenticated by: [id number] Y Date: 05/29/2025 17:31
--- NOTE | 2025-05-29 12:11 | CA_ITS ---
Patient Name: KALINA HAMMONDS MR#: [id number] : 1980 Exam Date: 05/29/2025 Ordering Doctor: EVA STEWART ECHOCARDIOGRAM REPORT PROCEDURE: CA ECHO DOPPLER COMPLETE INDICATIONS: Hypertensive urgency COMPARISON: None. DESCRIPTION: COMPLETE ECHOCARDIOGRAM Real-time transthoracic echocardiography with 2D, M-mode, spectral and color flow Doppler performed. QUALITY: Technical quality was good. LEFT VENTRICLE: Normal chamber size. Moderate concentric left ventricular hypertrophy. LV EF: Global left ventricular systolic function is hyperdynamic; visually estimated ejection fraction is 75%. No significant wall motion abnormalities. DIASTOLIC: Normal diastolic function. ATRIAL SEPTUM: Inadequately seen. LEFT ATRIUM: Normal chamber size. RIGHT ATRIUM: Normal chamber size. RIGHT VENTRICLE: Small chamber size. Normal right ventricular systolic function. TRICUSPID VALVE: Normal mobility and thickness. No stenosis with trivial regurgitation. No evidence of pulmonary hypertension. RVSP 29mmHg. MITRAL VALVE: Normal mobility and thickness. No evidence of mitral valve stenosis. There is no mitral annular calcification. No mitral regurgitation. AORTIC VALVE: Normal trileaflet appearance. No visible sclerosis. Normal leaflet mobility. No evidence of aortic valve stenosis. No aortic regurgitation. AORTIC ROOT: Normal diameter and appearance. PULMONIC VALVE: Normal thickness and mobility. No stenosis. Trivial regurgitation. PERICARDIUM: No evidence of pericardial effusion. IVC: Collapses with inspiration. Normal size. CONCLUSION: 1. Global left ventricular systolic function is hyperdynamic; visually estimated ejection fraction is 75% 2. Moderate left ventricular hypertrophy 3. The right ventricle is small in size with normal systolic function 4. Normal diastolic function 5. No significant valvular abnormalities Adult Echocardiography Procedure Report Left Ventricle LVEDD (3.7 - 5.6 cm): 3.27 cm LVESD (2.2 - 4.0 cm): 2.07 cm LVIVS thickness (0.6 - 1.2 cm): 1.44 cm LVPW thickness (0.5 - 1.0 cm): 1.30 cm e': 0.13 m/s E - e': 4.88 LVOT Max Gradient: 8.55 mm[Hg] LVOT Area (cm2): 1.46 m/s Peak Velocity (LVOT): 1.46 m/s Mean Velocity (LVOT): 1.10 m/s LVOT Diameter 2.08 cm Left Ventricular Ejection Fraction: 80.58 % Left Atrium LA Volume Index (2D A2C): 23.44 ml/m2 Left Atrium Systolic Dimension: 2.97 cm Mitral Valve MV E to A Ratio: 0.62 Mitral Valve A-Wave Peak Velocity: 1.01 m/s Mitral Valve E-Wave Peak Velocity: 0.62 m/s Right Ventricle RV Internal Diastolic Dimension: 2.34 cm Aorta AO Root Diam: 2.91 cm Ascending Ao Diam: 3.34 cm Aortic Valve AoV Area (Peak Avel): 3.41 cm2, 3.41 cm2 AoV Area (VTI): 3.23 cm2, 3.23 cm2 Peak Velocity(Antegrade Flow): 1.46 m/s Peak Gradient(Antegrade Flow): 8.48 mm[Hg] Mean Velocity(Antegrade Flow): 0.97 m/s Mean Gradient(Antegrade Flow): 4.58 mm[Hg] Velocity Time Integral: 23.64 cm Tricuspid Valve Peak Velocity (Regurgitant Flow): 2.57 m/s Pulmonic Valve Peak Velocity: 1.06 m/s Peak Gradient: 4.77 mm[Hg], 4.19 mm[Hg] Right Atrium Right Atrium Systolic Pressure: 13.60 ml, 13.60 ml Dictated by: Josef Orosco M.D. on 05/29/2025 at 16:54 Approved by: Josef Orosco M.D. on 05/29/2025 at 16:58
[2025-05-29 13:47] LABS: Glucose Urine UA NEGATIVE (NEGATIVE)
[2025-05-29 13:54] LABS: Cast Seen? NONE SEEN #/LPF (NONE SEEN); Crystals Seen? None Seen #/HPF (None Seen); Urine Culture Indicated NO
[2025-05-29 13:56] LABS: Cannabinoid Screen Urine NEGATIVE (NEGATIVE); Methamphetamines Screen Urine NEGATIVE (NEGATIVE); Tricyclic Antidepressant Urine NEGATIVE (NEGATIVE)
--- NOTE | 2025-05-29 16:18 | P.HP_ITS ---
HPI H&P: HPI History of Present Illness Chief complaint: HYPERTENSIVE EMERGENCY POSTERIOR REVERSIBLE ENCEPH Narrative: Mrs. Lindo is a 44-year-old female with a known history of hypertension. 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 Patient was sent to the emergency room for an evaluation. She was found to have blood pressure of 185 systolically. CAT scan showed changes consistent with pres. Patient was started on Cardene drip. Emergency room physician I discussed her case with neurology in [place] and also neurology at [facility]. They did not recommend any additional imaging other than MRI. They recommended blood pressure control. Patient denies any focal weakness or numbness. No slurred speech. No confusion or disorientation. Opioid HPI Opioid Management Most Recent Pain and Opioid Data: Last Pain Scale 4 Today, 07:47 Last Pain Assessment Today, 13:00 Last ORT Total Score 0 Today, 11:35 Last ORT Risk Category Low Risk Today, 11:35 Ur Phencyclidine Scrn, (NEGATIVE) Negative Today, 13:00 PFSH PFSH Medical History (Updated 05/29/25 @ 11:08 by Gloria Wang) Hypertension ?I10 - Essential (primary) hypertension (ICD-10) Surgical History (Updated 05/29/25 @ 11:08 by Gloria Wang) History of breast implant removal ?Z98.86 - Personal history of breast implant removal (ICD-10) History of elective breast augmentation ?Z98.82 - Breast implant status (ICD-10) Social History Highest level of school completed/degree received: 11th grade Little interest or pleasure in doing things: not at all Feeling down, depressed, or hopeless: not at all Meds Home Medications and Allergies Home Medications ?Medication ?Instructions ?Recorded ?Confirmed ?Type amlodipine 5 mg tablet 5 mg PO DAILY 05/29/2505/29 History lisinopril 40 mg tablet 40 mg PO DAILY 05/29/2505/14 History Allergies Allergy/AdvReac Type Severity Reaction Status Date / Time No Known Drug Allergies Allergy Verified 05/29/25 07:39 Exam Narrative Exam Narrative: [pt is awake and alert. oriented to place, time and person HEENT: [place] conjunctiva and NL buccal mucosa Neck: Supple, no tenderness Endocrine: No Thyromegaly. Vascular: No JVD or carotid bruit. Lymphatic: No cervical lymphadenopathy. Chest: CTA no DTP. Heart RRR, no extra sound or murmur. Abd: Soft, no tenderness, no rebound and no rigidity. Increase abd girth therefore clinically I could not exclude the possibility of intra abd mass or organomegaly. LE: No cyanosis or clubbing, no varices or edema. Neuro: A A O. Nl speech, comprehension and attention. Nl and symetrical motor and tone examination through out. []] Constitutional Vital Signs, click to edit/add: Last Vital Signs Temp 98 F 05/29/25 11:35 Pulse 112 H 05/29/25 15:15 Resp 18 05/29/25 15:15 BP 134/92 H 05/29/25 15:15 Pulse Ox 96 05/29/25 15:15 O2 Del Method Room Air 05/29/25 11:35 Results Labs Labs: Short CBC 05/29/25 Range/Units 07:58 WBC 6.2 (4.0-11.0) 10^3/uL Hgb 13.1 (12.0-16.0) g/dL Hct 38.6 (36.0-48.0) % Plt Count 351 (150-450) 10^3/uL BMP 05/29/25 07:58 Sodium 141 Potassium 3.9 Chloride 104 Carbon Dioxide 25.6 BUN 12.0 Creatinine 0.61 Glucose 95 Calcium 9.1 Liver Function 05/29/25 Range/Units 07:58 Total Bilirubin 0.5 (0.2-1.0) mg/dL AST 15 (15-37) U/L ALT 27 (14-59) U/L Alkaline Phosphatase 55 (46-116) U/L Albumin 4.2 (3.4-5.0) g/dL Urine 05/29/25 Range/Units 13:00 Urine Color Lt. yellow (YELLOW) Urine Clarity Clear (CLEAR) Urine pH 7.5 (5.0-9.0) Ur Specific [place] 1.015 (1.005-1.025) Urine Protein Negative (NEG/TRACE) mg/dL Urine Glucose (UA) Negative (NEGATIVE) mg/dL Assessment and Plan Assessment and Plan (1) Hypertensive emergency: (2) PRES (posterior reversible encephalopathy syndrome): Plan Hypertensive emergency in this 44-year-old female. Rule out secondary hypertension such as renal artery stenosis secondary to fibromuscular hypertrophy, pheochromocytoma, hyperaldosterenemia Requested to check metanephrine, aldosterone and renin level. Requested renal Doppler ultrasound rule out renal artery stenosis. Ideally patient may need CTA of the abdomen to see if she has any stenosis Started her on a combination of blood pressure medication to keep her systolic less than 150 Urine drug screen is negative Patient does not have features that would indicate obstructive sleep apnea contributing to her hypertensive urgency. Patient drinks a few beers a day. No excessive alcohol consumption. No tobacco use, no drug use. Abnormal CT brain suspicious for PRES Requested MRI of the brain with and without contrast Further needed diagnostic and therapeutic intervention will be determined based on the clinical progression and follow-up test result
[2025-05-29] MEDS: ACETAMINOPHEN 325 MG TABLET 650 MG PO (16:45)
[2025-05-29] MEDS: METOPROLOL TARTRATE 25 MG TABLET PO ×2 (17:11→20:39)
[2025-05-30] VITALS (18 sets, daily range): BP systolic 117–166; BP diastolic 71–101; PULSE 57–97; TEMP 36.4–36.7; O2SAT 96–98
[2025-05-30 06:33] LABS: Anion Gap 11.8; Blood Urea Nitrogen 18.0 mg/dL (7.0-18.0); Calcium 9.0 mg/dL (8.5-10.1); Carbon Dioxide 26.1 mmol/L (21.0-32.0); Chloride 107 mmol/L (98-107); Estimated GFR (African America >60 (>=60 mL/min/1.73m^2); Estimated GFR (Non-African Ame >60 (>=60 mL/min/1.73m^2); Glucose 103 mg/dL (74-106); Potassium 3.9 mmol/L (3.5-5.1); Sodium 141 mmol/L (136-145)
[2025-05-30] MEDS: METOPROLOL TARTRATE 25 MG TABLET PO (08:30)
[2025-05-30] MEDS: LISINOPRIL 20 MG TABLET PO (08:31)
[2025-05-30] MEDS: AMLODIPINE BESYLATE 5 MG TABLET PO (08:31)
--- NOTE | 2025-05-30 08:31 | PM.PN ---
Progress Note: Subjective Subjective Interval history: Patient is feeling better. Uneventful night. No chest pain palpitation. No headache. No confusion, no disorientation Exam Narrative Exam Narrative: [pt is awake and alert. oriented to place, time and person HEENT: [place] conjunctiva and NL buccal mucosa Neck: Supple, no tenderness Endocrine: No Thyromegaly. Vascular: No JVD or carotid bruit. Lymphatic: No cervical lymphadenopathy. Chest: CTA no DTP. Heart RRR, no extra sound or murmur. Abd: Soft, no tenderness, no rebound and no rigidity. Increase abd girth therefore clinically I could not exclude the possibility of intra abd mass or organomegaly. LE: No cyanosis or clubbing, no varices or edema. Neuro: A A O. Nl speech, comprehension and attention. Nl and symetrical motor and tone examination through out. []] Constitutional Vital Signs, click to edit/add: Last Vital Signs Temp 97.8 F 05/30/25 07:58 Pulse 61 05/30/25 08:09 Resp 16 05/30/25 07:58 BP 146/87 H 05/30/25 07:58 Pulse Ox 96 05/30/25 07:58 O2 Del Method Room Air 05/30/25 07:58 Progress Note: Objective Labs Labs: BMP 05/29/25 05/30/25 07:58 06:14 Sodium 141 141 Potassium 3.9 3.9 Chloride 104 107 Carbon Dioxide 25.6 26.1 BUN 12.0 18.0 Creatinine 0.61 0.56 Glucose 95 103 Calcium 9.1 9.0 Liver Function 05/29/25 Range/Units 07:58 Total Bilirubin 0.5 (0.2-1.0) mg/dL AST 15 (15-37) U/L ALT 27 (14-59) U/L Alkaline Phosphatase 55 (46-116) U/L Albumin 4.2 (3.4-5.0) g/dL Urine 05/29/25 Range/Units 13:00 Urine Color Lt. yellow (YELLOW) Urine Clarity Clear (CLEAR) Urine pH 7.5 (5.0-9.0) Ur Specific [place] 1.015 (1.005-1.025) Urine Protein Negative (NEG/TRACE) mg/dL Urine Glucose (UA) Negative (NEGATIVE) mg/dL Progress Note: A&P Assessment and Plan (1) Hypertensive emergency: (2) PRES (posterior reversible encephalopathy syndrome): Plan Hypertensive emergency in this 44-year-old female. Rule out secondary hypertension such as renal artery stenosis secondary to fibromuscular hypertrophy, pheochromocytoma, hyperaldosterenemia Requested to check metanephrine, aldosterone and renin level. Requested renal Doppler ultrasound rule out renal artery stenosis. Ideally patient may need CTA of the abdomen to see if she has any stenosis Started her on a combination of blood pressure medication to keep her systolic less than 150. Blood pressure is under better control Urine drug screen is negative Patient does not have features that would indicate obstructive sleep apnea contributing to her hypertensive urgency. Patient drinks a few beers a day. No excessive alcohol consumption. No tobacco use, no drug use. Continue current regimen today. Pending metanephrine, aldosterone, renin, renal artery ultrasound will need to be followed up by PCP. She may need the CTA of the renal artery if she continues to have resistant hypertension to be arranged by PCP. Abnormal CT brain suspicious for PRES MRI does not show any evidence of Pres. Suspicious for MS. Patient had seen neurologist Dr. Morales Johnston last year. She had the MRI and LP at that time. Those came back negative for MS. Dr. Omalley recommended repeat MRI in 1 year and to follow-up with him. We will arrange for patient to follow-up with him. KRYSTEN Gaitan
[2025-05-30] MEDS: ACETAMINOPHEN 325 MG TABLET 650 MG PO (08:33)
[2025-05-30] MEDS: ENOXAPARIN SODIUM 40 MG/0.4 ML SYRINGE SUBQ (08:55)
--- NOTE | 2025-05-30 09:30 | PC.NURSE ---
Tele neuro Brandie called nurse for consult. Informed that pt is currently having renal US at bedside. Brandie states they will have to do consult later, as Dr is available now, and will start clinic soon. Monitor / neuro cart screen placed in room for when they call back.
--- OUTSIDE RECORDS SUMMARY | 2025-05-30 09:44 | XMS_ITS | Encounter Summary ---
Author Organization [facility] Address [facility] [id number] [address] [place] [address] Care Team Providers Care Sports Clerk Name Role Phone Chata Vargas APRN-WATER VESSEL CAPTAIN Primary Care Provider + Encounter Details Date Type Department Care Team (Late st Contact Info) Description 06/28/2023 Telephone [facility] Internal Medicine - Family Medicine [address] [place] [address] Chata Vargas APRN-WATER VESSEL CAPTAIN [address] [place] [address] Social History Tobacco Use Types Packs/Day Years [...] Medicine - Family Medicine [address] [place] [address] Chata Vargas LABOR RELATIONS DIRECTOR-WATER VESSEL CAPTAIN [address] [place] [address] documented as of this encounter Visit Diagnoses Not on filedocumented in this encounter Additional Health Concerns Assessment Noted Time PHQ-9 Depression Total Score: 0 06/22/20 3:18 PM EDT documented as of this encounter Care Teams Sports Clerk Relationship Specialty Start Date End Date Chata Vargas, LABOR RELATIONS DIRECTOR-WATER VESSEL CAPTAIN [address] [place] [address] PCP - General Internal Medicine 03/04/23 documented as of this encounter
--- OUTSIDE RECORDS SUMMARY | 2025-05-30 09:44 | XMS_ITS | Encounter Summary ---
Author Organization [employer] [facility] Address [facility] [id number] [address] [place] [address] Care Team Providers Care Patent Searcher Name Role Phone Chata Vargas APRN-INFORMATION OPERATOR Primary Care Provider + Reason for Visit * Reason Onset Date Comments Med Refill 05/24/2025 Encounter Details Date Type Department Care Team (Late st Contact Info) Description 05/24/2025 Refill [facility] Internal Medicine - Family Medicine [address] [place] [address] Nargis Davies CMA Social History Tobacco Use [...] Medicine - Family Medicine [address] [place] [address] Chata Vargas APRN-CNP [address] [facility] [address] [address] documented as of this encounter Visit Diagnoses Not on filedocumented in this encounter Additional Health Concerns Assessment Noted Time PHQ-9 Depression Total Score: 1 05/11/20 25 11:13 AM EDT A Body Mass Index follow-up plan has been documented for the patient 04/06/2025 3:07 PM EDT documented as of this encounter Care Teams Patent Searcher Relationship Specialty Start Date End Date Chata Vargas APRN-CNP [address] [facility] [address] [address] PCP - General Internal Medicine 03/04/23 documented as of this encounter
--- OUTSIDE RECORDS SUMMARY | 2025-05-30 09:44 | XMS_ITS | Encounter Summary ---
Author Organization [facility] Sys tem Address [facility] [id number] [address] [place] [address] Care Team Providers Care Catering Staff Member Name Role Phone Alicia, Chata Brown APRN-MONTESSORI TODDLER TEACHER Primary Care Provider + Encounter Details Date Type Department Care Team (Late st Contact Info) Description 05/10/2024 Orders Only [facility] Internal Medicine - Family Medicine [address] [facility] [place] [phone] Ref [place], [place] [address] Social History Tobacco Use Types Packs/Day Years [...] - Family Medicine [address] [address] Chata Vargas, GLOST TILE SHADER-MONTESSORI TODDLER TEACHER [address] [place] [address] documented as of this encounter Procedures Procedure [...] documented as of this encounter Care Teams Catering Staff Member Relationship Specialty Start Date End Date Chata Vargas, GLOST TILE SHADER-MONTESSORI TODDLER TEACHER [address] [place] [address] PCP - General Internal Medicine 03/04/23 documented as of this encounter
--- OUTSIDE RECORDS SUMMARY | 2025-05-30 09:44 | XMS_ITS | Encounter Summary ---
Author Organization [facility] tem Address [facility] [place]-[id number] [address] [place] [address] Care Team Providers Care Electrical Helper Name Role Phone Chata Vargas APRN-SENIOR JAVA PROGRAMMER ANALYST Primary Care Provider + Encounter Details Date Type Department Care Team (Late st Contact Info) Description 04/11/2025 Results Follow-Up [facility] Internal Medicine - Family Medicine [address] [place] [address] Chata Vargas APRN-SENIOR JAVA PROGRAMMER ANALYST [address] [facility] [address] Lipid profile, Comprehensive metabolic panel, CBC auto [...] Medicine - Family Medicine [address] [place] [address] Chata Vargas BUYER PLANNER-SENIOR JAVA PROGRAMMER ANALYST [address] [facility] Hospital[facility] [address] documented as of this encounter Visit Diagnoses Not on filedocumented in this encounter Additional Health Concerns Assessment Noted Time PHQ-9 Depression Total Score: 2 04/05/20 11:33 AM EDT A Body Mass Index follow-up plan has been documented for the patient 04/06/2025 3:07 PM EDT documented as of this encounter Care Teams Electrical Helper Relationship Specialty Start Date End Date Chata Vargas, BUYER PLANNER-SENIOR JAVA PROGRAMMER ANALYST [address] [place] [address] PCP - General Internal Medicine 03/04/23 documented as of this encounter
--- OUTSIDE RECORDS SUMMARY | 2025-05-30 09:44 | XMS_ITS | Clinical Summary ---
Author Organization [facility] Address [address] [place] [address] Care Team Providers Care Furniture Repairer Name Role Phone Chata Vargas MD Unavailable [...] 03/08/2025, 02/12, 03/07/2024, Additional history exists [place] [place] [address] Care Teams Furniture Repairer Relationship Specialty Start Date End Date Unallocated, Noms MD [address] [place] [address] PCP - General Family Medicine 07/27/24 Chata Vargas MD Referring Physician Family Medicine 05/23/24
--- OUTSIDE RECORDS SUMMARY | 2025-05-30 09:44 | XMS_ITS | Patient Health Record ---
Author Organization [facility] Address [address] [place], [place] [id number] Care Team Providers Care Furnace Charger Name Role Phone Jessica Campa Unavailable [phone] Reason For Referral No Information Social History Sex Assigned At : Social History Observation Description Sex Assigned At Female Plan Of Treatment No Information
--- OUTSIDE RECORDS SUMMARY | 2025-05-30 09:44 | XMS_ITS | Encounter Summary ---
Author Organization [facility] tem Address [facility] [place]-[id number] [address] [place] [address] Care Team Providers Care Pecan Grower Name Role Phone Chata Vargas APRN-MACHINE WASHER Primary Care Provider + Reason for Visit * Reason Comments Med Refill Encounter Details Date Type Department Care Team (Late st Contact Info) Description 05/22/2025 Refill [facility] Internal Medicine - Family Medicine [address] [place] [address] Chata Vargas APRNMACHINE WASHER [address] [facility] [address] Social History Tobacco Use Types Packs/Day Years [...] Medicine - Family Medicine [address] [place] [place] [address] Chata Vargas APRN-MACHINE WASHER [address] [place] [address] documented as of this encounter Visit Diagnoses Not on filedocumented in this encounter Additional Health Concerns Assessment Noted Time PHQ-9 Depression Total Score: 1 05/11/20 25 11:13 AM EDT A Body Mass Index follow-up plan has been documented for the patient 04/06/2025 3:07 PM EDT documented as of this encounter Care Teams Pecan Grower Relationship Specialty Start Date End Date Chata Vargas ROCKET ENGINE COMPONENT MECHANIC-MACHINE WASHER [address] [place] [address] PCP - General Internal Medicine 03/04/23 documented as of this encounter
--- OUTSIDE RECORDS SUMMARY | 2025-05-30 09:44 | XMS_ITS | Encounter Summary ---
Author Organization [facility] Address [facility]-[id number] [address] [place] [address] Care Team Providers Care Test Analyst Name Role Phone Chata Vargas APRN-SHOWCASE TRIMMER Primary Care Provider + Encounter Details Date Type Department Care Team (Late st Contact Info) Description 02/06/2025 Telephone [facility] - Family Medicine [address] [place] [phone] Froylan Alvarado CMA Social History Tobacco Use [...] Medicine - Family Medicine [address] [place] [address] Chata Vargas APRN-CNP [address] [place] [address] documented as of this encounter Visit Diagnoses Not on filedocumented in this encounter Additional Health Concerns Assessment Noted Time PHQ-9 Depression Total Score: 0 05/18/20 24 11:33 AM EDT documented as of this encounter Care Teams Test Analyst Relationship Specialty Start Date End Date Chata Vargas, DIRECTOR OF TEENAGE ACTIVITIES-SHOWCASE TRIMMER [address] [place] [address] PCP - General Internal Medicine 03/04/23 documented as of this encounter
--- OUTSIDE RECORDS SUMMARY | 2025-05-30 09:44 | XMS_ITS | Encounter Summary ---
Author Organization [facility] Address [facility] [id number] [address] [place] [address] Care Team Providers Care Supervising Airplane Pilot Name Role Phone Chata Vargas APRN-TICKET BROKER Primary Care Provider + Reason for Visit * Reason Comments Med Refill Encounter Details Date Type Department Care Team (Late st Contact Info) Description 05/22/2025 Refill [facility] Internal Medicine - Family Medicine [address] [place] [address] Chata Vargas APRNTICKET BROKER [address] [facility] [address] Social History Tobacco Use Types Packs/Day Years [...] Medicine - Family Medicine [address] [place] [address] Chata Vargas APRN-TICKET BROKER [address] [place] [address] documented as of this encounter Visit Diagnoses Not on filedocumented in this encounter Additional Health Concerns Assessment Noted Time PHQ-9 Depression Total Score: 1 05/11/20 25 11:13 AM EDT A Body Mass Index follow-up plan has been documented for the patient 04/06/2025 3:07 PM EDT documented as of this encounter Care Teams Supervising Airplane Pilot Relationship Specialty Start Date End Date Chata Vargas MELT SUPERINTENDANT-TICKET BROKER [address] [place] [address] PCP - General Internal Medicine 03/04/23 documented as of this encounter
--- OUTSIDE RECORDS SUMMARY | 2025-05-30 09:44 | XMS_ITS | Encounter Summary ---
Author Organization [facility] tem Address [facility]-[id number] [address] [place] [address] Care Team Providers Care Tax Revenue Officer Name Role Phone Alicia Chata Brown APRN-HOTEL SERVICES SUPERVISOR Primary Care Provider + Reason for Visit * Reason Onset Date Comments Med Refill 02/07/2025 Encounter Details Date Type Department Care Team (Late st Contact Info) Description 02/07/2025 Refill [facility] Internal Medicine - Family Medicine [address] [place] [address] Nargis Davies CMA Social History Tobacco Use [...] Medicine - Family Medicine [address] [place] [address] Chata Vargas ONLINE TUTOR-HOTEL SERVICES SUPERVISOR [address] [facility] Center[facility] c[facility] [address] documented as of this encounter Visit Diagnoses Not on filedocumented in this encounter Additional Health Concerns Assessment Noted Time PHQ-9 Depression Total Score: 0 05/18/20 24 11:33 AM EDT documented as of this encounter Care Teams Tax Revenue Officer Relationship Specialty Start Date End Date Chata Vargas ONLINE TUTOR-HOTEL SERVICES SUPERVISOR [address] [place] [address] PCP - General Internal Medicine 03/04/23 documented as of this encounter
--- OUTSIDE RECORDS SUMMARY | 2025-05-30 09:44 | XMS_ITS | Encounter Summary ---
Author Organization [facility] Address [facility] [place]-[id number] [address] [place] [address] Care Team Providers Care Weight Reduction Specialist Name Role Phone Alicia, Chata Brown APRN-SIDEROGRAPHER Primary Care Provider + Encounter Details Date Type Department Care Team (Late st Contact Info) Description 05/30/2025 Orders Only [facility] Internal Medicine - Family Medicine [address] [facility] [place] [address] Ref Prov, [place] [address] Social History Tobacco Use Types Packs/Day Years [...] Medicine - Family Medicine [address] [place] [address] Chata Vargas APRN-SIDEROGRAPHER [address] [place] [address] documented as of this encounter Procedures Procedure Name Priority Date/Time Associated Diagnosis Comments MR BRAIN W WO CONT Routine 05/29/2025 9:12 AM EDT documented in this encounter Results * MR brain with and without contrast (05/29/2025 9:12 AM EDT) Anatomical Region Laterality Modality Neuro, Head, Head and Neck, Neuro Covera N/A Magnetic Resonance us Not In System Ref Prov IMG MRI ORDERABLES Final Result documented in this encounter Visit Diagnoses Not on filedocumented in this encounter Additional Health Concerns Assessment Noted Time PHQ-9 Depression Total Score: 1 05/11/20 11:13 AM EDT A Body Mass Index follow-up plan has been documented for the patient 04/06/2025 3:07 PM EDT documented as of this encounter Care Teams Weight Reduction Specialist Relationship Specialty Start Date End Date Chata Vargas APRN-SIDEROGRAPHER [address] [place] [address] PCP - General Internal Medicine 03/04/23 documented as of this encounter
--- OUTSIDE RECORDS SUMMARY | 2025-05-30 09:44 | XMS_ITS | Encounter Summary ---
Author Organization [facility] Address [address] [place] [address] Care Team Providers Care Drapery Installer Name Role Phone Chata Vargas MD Unavailable Unallocated, Noms Provider Primary Care Provi aracelis Encounter Details Date Type Department Care Team (Late st Contact Info) Description 07/31/2024 External Result Encounter [facility] [address] [place] [phone] Morales Johnston DO [address] [place] [address] Social History Tobacco Use Types [...] AM EST THIS EXAM WAS PERFORMED AT [facility] MR BRAIN W WO CONT 07/29/2024 [...] - 07/31/2024 THIS EXAM WAS PERFORMED AT [facility] MR BRAIN W WO CONT 07/29/2024 [...] on filedocumented in this encounter Care Teams Drapery Installer Relationship Specialty Start Date End Date Unallocated, Noms MD [facility] [address] [place] [address] PCP - General Family Medicine 07/27/24 Chata Vargas MD Referring Physician Family Medicine 05/23/24 documented as of this encounter
--- OUTSIDE RECORDS SUMMARY | 2025-05-30 09:44 | XMS_ITS | Encounter Summary ---
Author [facility] Address [id number] [address] [place] [address] Care Team Providers Care Dispatcher Service Name Role Phone Chata Vargas APRN-LINE WELDER Primary Care Provider + Encounter Details Date Type Department Care Team (Late st Contact Info) Description 07/15/2023 Telephone [facility] Internal Medicine - Family Medicine [address] [place] [phone] Tamiko Schofield CMA Social History Tobacco Use [...] if you could refer her to a Coal Yard Supervisor near [place]? * Telephone Encounter - LINDA Duncan - [...] - Family Medicine [address] [place] [address] Chata Vargas APRN-CNP [address] [place] [address] documented as of this encounter Visit Diagnoses Not on filedocumented in this encounter Additional Health Concerns Assessment Noted Time PHQ-9 Depression Total Score: 0 06/22/20 3:18 PM EDT documented as of this encounter Care Teams Dispatcher Service Relationship Specialty Start Date End Date Chata Vargas APRN-CNP [address] [place] [address] PCP - General Internal Medicine 03/04/23 documented as of this encounter
--- OUTSIDE RECORDS SUMMARY | 2025-05-30 09:44 | XMS_ITS | Clinical Summary ---
Author Organization [employer] tem Address [id number] [address] [place] [address] Care Team Providers Care Ball Racker Name Role Phone Chata Vargas APRN-ANIMAL IMPERSONATOR Primary Care Provider + Allergies Active Allergy [...] Encounters Date Type Department Care Team Description 05/30/2025 Orders Only [facility] Internal Medicine - Family Medicine [address] [place] [address] Ref Prov, Not In System 05/29/2025 11:43 AM EDT - Present Emergency [facility] Tele Stroke [address] [place] [id number] 05/25/2025 8:55 AM EDT - 05/25/2025 11:59 PM EDT Hospital Encounter [facility] - Cardiovascular [address] [place] [address] Palpitations Discharge Disposition: Home 05/25/2025 Travel 05/24/2025 Refill [facility] Internal Medicine - Family Medicine [address] [place] [address] Nargis Davies CMA 05/23/2025 Travel 05/22/2025 Refill [facility] Internal Medicine - Family Medicine [address] [place] [address] Chata Vargas, MANAGER CCU-ANIMAL IMPERSONATOR 05/22/2025 Orders Only [facility] Internal Medicine - Family Medicine [address] [place] [address] Chata Vargas, MANAGER CCU-ANIMAL IMPERSONATOR 05/22/2025 Refill [facility] Internal Medicine - Family Medicine [address] [place] [address] Chata Vargas, MANAGER CCU-ANIMAL IMPERSONATOR 05/11/2025 11:00 AM EDT Office Visit [facility] Internal Medicine - Family Medicine [address] [place] [address] Chata Vargas, MANAGER CCU-ANIMAL IMPERSONATOR Essential hypertension (Primary Dx); Palpitations; Obstructive sleep apnea; Oculomotor nerve palsy, unspecified laterality 05/10/2025 Travel 04/11/2025 Results Follow-Up [facility] Internal Medicine - Family Medicine [address] [place] [address] Chata Vargas APRN-CNP Lipid profile, Comprehensive metabolic panel, CBC auto differential, Additional followed-up results: 2 04/05/2025 11:40 AM EDT Office Visit [facility] [address] [place] [address] Chata Vargas APRN-CNP Eye pressure (Primary Dx); Hypertriglyceridemia; Essential hypertension; Fatigue, unspecified type; Special screening for malignant neoplasm of colon; Overweight (BMI 25.0-29.9) 04/05/2025 Refill [facility] [address] [place] [address] Chata Vargas APRN-CNP 04/05/2025 Travel 04/02/2025 Telephone [facility] [address] [place] [address] Tamiko Schofield CMA from Last 3 Months [...] Medicine - Family Medicine [address] [place] [address] Chata Vargas, MANAGER CCU-ANIMAL IMPERSONATOR [address] [place], [place] [id number] Health Maintenance Due Date Last Done Comments [...] 10/17/2020 Medical Devices Not on file Procedures * The patient is currently admitted. The information in this section might not be complete until the patient is discharged. Procedure Name Priority Date/Time Associated Diagnosis Comments MR BRAIN W WO CONT Routine 05/29/2025 9: 12 AM EDT COLOGUARD NON-[facility] Routine 04/13/2025 6:40 AM EDT [...] Recently Relevant to Health Maintenance Results * MR brain with and without contrast (05/29/2025 9:12 AM EDT) Anatomical Region Laterality Modality Neuro, Head, Head and Neck, Neuro Covera N/A Magnetic Resonance us Not In System Ref Prov IMG MRI ORDERABLES Final Result * Cologuard Non[facility] (04/13/2025 6:40 AM EDT) EXTERNAL COLOGUARD Negative Negative 2024 1:19 PM EDT [facility] (CLIA #:[id number]) Comment: The Cologuard (TM) test was performed [...] screened with both Cologuard and colonoscopy. (Rob Kulkarni. et al, N Engl J Med 2014;370(14):1286- 1297) The normal value (reference range) for this assay is negative. COLOGUARD RE-SCREENING RECOMMENDATION: Periodic colorectal cancer screening is an important part of preventive healthcare for asymptomatic individuals at average risk for colorectal cancer. Following a negative Cologuard result, the [place] Cancer Society and U.S. Multi-Society Task Force screening guidelines recommend a Cologuard re-screening interval of 3 years. References: [place] [employer] Guideline for Colorectal Cancer Screening: https://www.cancer.org/cancer/mhzwl-ceawib-npqzbj/hntpoaqgm-oopiifmln-wjslegr/ac s-rec ommendations.html.; Harshal LUKE, Jayant ZAVALA, Mati BrushK, Colorectal Cancer Screening: Recommendations for Physicians and Patients from the U.S. Multi-Society Task Force on Colorectal Cancer Screening , Am J Gastroenterology 2017; 112:5967-1670. TEST DESCRIPTION: Composite algorithmic analysis of stool [...] screened with both Cologuard and colonoscopy. (Rob Lambert et al, N Engl J Med 2014;370(14):7644-8575.) Cologuard may produce a false negative or false positive result (no colorectal cancer or precancerous polyp present at colonoscopy follow up). A negative Cologuard test result does not guarantee the absence of CRC or advanced adenoma (pre-cancer). The current Cologuard screening interval is every 3 years. ([place] [employer] Society and U.S. Multi-Society Task Force). Cologuard performance data in a 10,000 patient pivotal study using colonoscopy as the reference method can be accessed at the following location: www.[place]/results. Additional description of the Cologuard test process, warnings and precautions can be found at www.[employer].com. Stool specimen (specimen) Rectum structure / Unknown 04/13/2025 6:40 AM EDT 04/14/2025 1:18 PM EDT Chata Vargas MANAGER CCU-ANIMAL IMPERSONATOR LAB ORDERABLES Final Re sult [facility] (CLIA #:[id number]) [address] [place] [address], * TSH with Reflex (04/05/2025 12:24 PM EDT) TSH 1.18 0.49 - 4.67 uIU/mL 04/05/2025 6:53 PM EDT [facility] Blood Venous blood / Unknown 04/05/2025 12:24 PM EDT 04/05/2025 12:24 PM EDT Chata Vargas MANAGER CCU-ANIMAL IMPERSONATOR LAB BLOOD ORDERABLES Fin al Result [facility] [address] [place] [address], * CBC auto differential (04/05/2025 12:24 PM EDT) WBC 7.5 4 - 11 x10E9/L 04/05/2025 6:33 PM EDT [facility] RBC Count 4.31 3.8 - 5.2 X10E12/L 04/05/2025 6:33 PM EDT [facility] Hemoglobin 12.7 11.7 - 15.5 g/dL 04/05/2025 6:33 PM EDT [facility] Hematocrit 38.8 35 - 47 % 04/05/2025 6:33 PM EDT [facility] MCV 90 80 - 100 fL 04/05/2025 6:33 PM EDT [facility] MCH 29.4 27 - 34 pg 04/05/2025 6:33 PM EDT [facility] MCHC 32.7 32 - 36 g/dL 04/05/2025 6:33 PM EDT [facility] RDW 14.3 11.5 - 15 % 04/05/2025 6:33 PM EDT [facility] Platelet Count 338 150 - 450 X10E9/L 04/05/2025 6:33 PM EDT [facility] MPV 7.1 7 - 12 fL 04/05/2025 6:33 PM EDT [facility] Neutrophils % 65.9 % 04/05/2025 6:33 PM EDT [facility] Lymphocytes % 26.6 % 04/05/2025 6:33 PM EDT [facility] Monocytes % 5.7 % 04/05/2025 6:33 PM EDT [facility] Eosinophils % 1.1 % 04/05/2025 6:33 PM EDT [facility] Basophils % 0.7 % 04/05/2025 6:33 PM EDT [facility] Neutrophils Absolute (A) 5.0 1.5 - 6.6 10*3/uL 04/05/2025 6:33 PM EDT [facility] Lymphocytes Absolute 2.0 1.0 - 3.5 10*3/uL 04/05/2025 6:33 PM EDT [facility] Monocytes Absolute 0.4 0.0 - 0.9 10*3/uL 04/05/2025 6:33 PM EDT [facility] Eosinophils Absolute 0.1 0.0 - 0.4 10*3/uL 04/05/2025 6:33 PM EDT [facility] Basophils Absolute 0.1 0.0 - 0.2 10*3/uL 04/05/2025 6:33 PM EDT [facility] Differential Type AUTOMATED DIFFERENTIAL 04/05/2025 6:33 PM EDT [facility] Blood Venous blood / Unknown 04/05/2025 12:24 PM EDT 04/05/2025 12:24 PM EDT us Chata Vargas MANAGER CCU-ANIMAL IMPERSONATOR LAB BLOOD ORDERABLES Fin al Result [facility] [address] [place] [address], * (ABNORMAL) Lipid profile (04/05/2025 12:24 PM EDT) CHOLESTEROL 187 150 - 200 mg/dL 04/05/2025 6:49 PM EDT [facility] TRIGLYCERIDE 264(H) 27 - 150 mg/dL 04/05/2025 6:49 PM EDT [facility] HDL CHOLESTEROL 60 >39 mg/dL 6:49 PM EDT [facility] Comment: HDL <40 mg/dL - High Risk HDL > or = 40mg/dL- Desirable HDL >60 mg/dL - Negative Risk LDL (CALC) 74 <130 mg/dL 04/05/2025 6:49 PM EDT [facility] Comment: LDL <100 mg/dL - Desirable LDL >160 mg/dL - High Risk CHOLESTEROL:HDL 3.1 1.0 - 5.0 6:49 PM EDT [facility] VERY LOW LIPOPROTEIN 53(H) 0 - 30 mg/dL 04/05/2025 6:49 PM EDT [facility] Blood Venous blood / Unknown 04/05/2025 12:24 PM EDT 04/05/2025 12:24 PM EDT Chata Vargas MANAGER CCU-ANIMAL IMPERSONATOR LAB BLOOD ORDERABLES Fin al Result [facility] [address] [place] [address], * (ABNORMAL) Comprehensive metabolic panel (04/05/2025 12:24 PM EDT) SODIUM 139 134 - 146 mmol/L 04/05/2025 6:49 PM EDT [facility] POTASSIUM 3.7 3.5 - 5.0 mmol/L 04/05/2025 6:49 PM EDT [facility] CHLORIDE 105 98 - 109 mmol/L 04/05/2025 6:49 PM EDT [facility] CARBON DIOXIDE 24 22 - 32 mmol/L 04/05/2025 6:49 PM EDT [facility] ANION GAP 10 5 - 15 mmol/L 04/05/2025 6:49 PM EDT [facility] BLOOD UREA NITROGEN 15 5 - 23 mg/dL 04/05/2025 6:49 PM EDT [facility] CREATININE 0.64 0.40 - 1.00 mg/dL 04/05/2025 6:49 PM EDT [facility] Comment:METHOD TRACEABLE TO IDNE STANDARD GLUCOSE 113(H) 65 - 99 mg/dL 04/05/2025 6:49 PM EDT [facility] CALCIUM 9.2 8.5 - 10.5 mg/dL 04/05/2025 6:49 PM EDT [facility] TOTAL PROTEIN 7.3 6.0 - 8.0 g/dL 04/05/2025 6:49 PM EDT [facility] ALBUMIN 4.7 3.2 - 5.3 g/dL 04/05/2025 6:49 PM EDT [facility] ALKALINE PHOSPHATASE 42 39 - 130 U/L 04/05/2025 6:49 PM EDT [facility] AST 15 <=41 U/L 04/05/2025 6:49 PM EDT [facility] ALT 15 <=31 U/L 04/05/2025 6:49 PM EDT [facility] BILIRUBIN,TOTAL 0.4 0.3 - 1.2 mg/dL 04/05/2025 6:49 PM EDT [facility] EGFR Non-Race Dependent >90 >=60 ml/min/1.7 3sq.m 04/05/2025 6:49 PM EDT [facility] Comment: Reported eGFR is based on the CKD-EPI 2020 equation that does not use a race coefficient. Blood Venous blood / Unknown 04/05/2025 12:24 PM EDT 04/05/2025 12:24 PM EDT us Chata Vargas MANAGER CCU-ANIMAL IMPERSONATOR LAB BLOOD ORDERABLES Fin al Result [facility] [address] [place] [address], [place] [phone] * HM MAMMOGRAPHY (05/10/2024 2:49 PM EDT) Anatomical Region Laterality Modality Other us Not In System Ref Prov HEALTH MAINTENANCE Final Result from Last 3 Months or Most Recently Relevant to Health Maintenance Insurance ANTH Care Teams Ball Racker Relationship Specialty Start Date End Date Chata Vargas, MANAGER CCU-ANIMAL IMPERSONATOR [address] [place] [address] PCP - General Internal Medicine 03/04/23
--- OUTSIDE RECORDS SUMMARY | 2025-05-30 09:44 | XMS_ITS | Encounter Summary ---
Author Organization [facility] tem Address [facility]-[id number] [address] [place] [address] Care Team Providers Care Offset Press Assistant Name Role Phone Chata Vargas APRN-ESCROW REPRESENTATIVE Primary Care Provider + Encounter Details Date Type Department Care Team (Late st Contact Info) Description 09/11/2024 Orders Only [facility] Internal Medicine - Family Medicine [address] [place] [address] Dalton Reyes, DO [address], [place] [address] Social History Tobacco Use Types Packs/Day Years [...] Medicine [address] [address] Chata Vargas, DEMI CHEF-ESCROW REPRESENTATIVE [address] [facility] [place] [address] documented as of this encounter Visit Diagnoses Not on filedocumented in this encounter Additional Health Concerns Assessment Noted Time PHQ-9 Depression Total Score: 0 05/18/20 24 11:33 AM EDT documented as of this encounter Care Teams Offset Press Assistant Relationship Specialty Start Date End Date Chata Vargas, DEMI CHEF-ESCROW REPRESENTATIVE [address] [place] [address] PCP - General Internal Medicine 03/04/23 documented as of this encounter
--- OUTSIDE RECORDS SUMMARY | 2025-05-30 09:44 | XMS_ITS | Encounter Summary ---
Author Organization [employer] tem Address [id number] [address] [place] [address] Care Team Providers Care Group Supervisor Yard Name Role Phone Chata Vargas APRN-BILLING CONTROL CLERK Primary Care Provider + Reason for Visit * Reason Onset Date Comments Med Refill 10/24/2024 Encounter Details Date Type Department Care Team (Late st Contact Info) Description 10/24/2024 Refill [facility] Internal Medicine - Family Medicine [address] [place] [address] Korina, Migdalia, INSERTING MACHINE OPERATOR Social History Tobacco Use Types Packs/Day Years [...] Medicine - Family Medicine [address] [place] [address] Chata Vargas MARKET RESEARCH WORKER-BILLING CONTROL CLERK [address] [facility] [place] [address] documented as of this encounter Visit Diagnoses Not on filedocumented in this encounter Additional Health Concerns Assessment Noted Time PHQ-9 Depression Total Score: 0 05/18/20 24 11:33 AM EDT documented as of this encounter Care Teams Group Supervisor Yard Relationship Specialty Start Date End Date Chata Vargas MARKET RESEARCH WORKER-BILLING CONTROL CLERK [address] [place] [address] PCP - General Internal Medicine 03/04/23 documented as of this encounter
--- OUTSIDE RECORDS SUMMARY | 2025-05-30 09:44 | XMS_ITS | Encounter Summary ---
Author Organization [facility] Address [id number] [address] [place] [address] Care Team Providers Care Rn Cardiac Cath Name Role Phone Chata Vargas APRN-SENIOR DATA MINING ANALYST Primary Care Provider + Encounter Details Date Type Department Care Team (Late st Contact Info) Description 09/05/2024 Orders Only [facility] Internal Medicine - Family Medicine [address] [place] [address] Dalton Reyes, DO [address] [place] [address] Social History Tobacco Use Types Packs/Day Years [...] - Family Medicine [address] [address] Chata Vargas, MEDICAL FRONT DESK COORDINATOR-SENIOR DATA MINING ANALYST [address] [facility] [place] [address] documented as of this encounter Visit Diagnoses Not on filedocumented in this encounter Additional Health Concerns Assessment Noted Time PHQ-9 Depression Total Score: 0 05/18/20 24 11:33 AM EDT documented as of this encounter Care Teams Rn Cardiac Cath Relationship Specialty Start Date End Date Chata Vargas, MEDICAL FRONT DESK COORDINATOR-SENIOR DATA MINING ANALYST [address] [place] [address] PCP - General Internal Medicine 03/04/23 documented as of this encounter
--- OUTSIDE RECORDS SUMMARY | 2025-05-30 09:44 | XMS_ITS | Encounter Summary ---
Author Organization [facility] tem Address [facility]-[id number] [address] [place] [address] Care Team Providers Care Bridge Carpenter Name Role Phone Chata Vargas APRN-JAVA WEB ARCHITECT Primary Care Provider + Encounter Details Date Type Department Care Team (Late st Contact Info) Description 05/22/2025 Orders Only [facility] Internal Medicine - Family Medicine [address] [place] [address] Chata Vargas APRN-JAVA WEB ARCHITECT [address] [place] [address] Social History Tobacco Use Types Packs/Day Years [...] Medicine - Family Medicine [address] [place] [address] Chata Vargas ELECTRIC WELDER-JAVA WEB ARCHITECT [address] [place] [place] [address] documented as of this encounter Visit Diagnoses Not on filedocumented in this encounter Additional Health Concerns Assessment Noted Time PHQ-9 Depression Total Score: 1 05/11/20 25 11:13 AM EDT A Body Mass Index follow-up plan has been documented for the patient 04/06/2025 3:07 PM EDT documented as of this encounter Care Teams Bridge Carpenter Relationship Specialty Start Date End Date Chata Vargas ELECTRIC WELDER-JAVA WEB ARCHITECT [address] [place] [address] PCP - General Internal Medicine 03/04/23 documented as of this encounter
--- OUTSIDE RECORDS SUMMARY | 2025-05-30 09:44 | XMS_ITS | Encounter Summary ---
Author Organization [employer] tem Address [facility]-[id number] [address] [place] [address] Care Team Providers Care Material Engineer Name Role Phone Alicia Chata Brown APRN-PIPE COREMAKER Primary Care Provider + Encounter Details Date [...] Medicine - Family Medicine [address] [place] [address] Chata Vargas APRN-PIPE COREMAKER [address] [place] [address] documented as of this encounter Visit Diagnoses Not on filedocumented in this encounter Additional Health Concerns Assessment Noted Time PHQ-9 Depression Total Score: 1 05/11/20 11:13 AM EDT A Body Mass Index follow-up plan has been documented for the patient 04/06/2025 3:07 PM EDT documented as of this encounter Care Teams Material Engineer Relationship Specialty Start Date End Date Chata Vargas APRN-CNP [address] [place] [address] PCP - General Internal Medicine 03/04/23 documented as of this encounter
--- OUTSIDE RECORDS SUMMARY | 2025-05-30 09:44 | XMS_ITS | Encounter Summary ---
Author Organization [employer] [facility] Address [facility]-[id number] [address] [place] [address] Care Team Providers Care Computer Compositor Name Role Phone Chata Vargas APRN-LACE SEWER Primary Care Provider + Reason for Visit * Reason Onset Date Comments Med Refill 12/07/2024 Encounter Details Date Type Department Care Team (Late st Contact Info) Description 12/07/2024 Refill [facility] Internal Medicine - Family Medicine [address] [place] [address] Chata Vargas APRN-LACE SEWER [address] [place] [address] Dysthymia Social History Tobacco Use Types Packs/Day [...] Medicine - Family Medicine [address] [place] [address] Chata Vargas APRN-CNP [address] [facility] [place] [address] documented as of this encounter Visit Diagnoses Diagnosis Dysthymia Dysthymic disorder documented in this encounter Additional Health Concerns Assessment Noted Time PHQ-9 Depression Total Score: 0 05/18/20 24 11:33 AM EDT documented as of this encounter Care Teams Computer Compositor Relationship Specialty Start Date End Date Chata Vargas APRN-CNP [address] [place] [address] PCP - General Internal Medicine 03/04/23 documented as of this encounter
--- OUTSIDE RECORDS SUMMARY | 2025-05-30 09:44 | XMS_ITS | Encounter Summary ---
Author Organization [employer] tem Address [facility]-[id number] [address] [place] [address] Care Team Providers Care Therapy Coordinator Name Role Phone Alicia Chata Brown APRN-RATTLING MACHINE TENDER Primary Care Provider + Encounter Details Date [...] Medicine - Family Medicine [address] [place] [address] Chata Vargas APRN-RATTLING MACHINE TENDER [address] [place] [address] documented as of this encounter Visit Diagnoses Not on filedocumented in this encounter Additional Health Concerns Assessment Noted Time PHQ-9 Depression Total Score: 1 05/11/20 11:13 AM EDT A Body Mass Index follow-up plan has been documented for the patient 04/06/2025 3:07 PM EDT documented as of this encounter Care Teams Therapy Coordinator Relationship Specialty Start Date End Date Chata Vargas APRN-CNP [address] [place] [address] PCP - General Internal Medicine 03/04/23 documented as of this encounter
--- OUTSIDE RECORDS SUMMARY | 2025-05-30 09:44 | XMS_ITS | Clinical Summary ---
Author Organization [facility] Address [address], [address] [place] [address] Care Team Providers Care Technology Director Name Role Phone Dalton Reyes DO Primary Care Provider [phone] Allergies No known active allergies Medications bisoprolol (ZEBETA) 10 MG tablet Take 1 tablet by mouth daily Active Active Problems Problem Noted Date Diagnosed Date Essential hypertension 06/10/2020 Drug-induced hypokalemia 12/28/2019 Hypertriglyceridemia 11/06/2016 History of palpitations 06/08/2016 Encounters Date Type Department Care Team Description 03/12/2025 Results Follow-Up [facility] Part [address] [place] [address] Meghana Bustamante APRN - REGINE 03/08/2025 11:09 AM EDT - 03/08/2025 11:59 PM EDT Hospital Encounter [facility] [address] [place], [place] [id number] Well woman exam with routine gynecological exam; Screening for HPV (human papillomavirus) Discharge Disposition: Home or Self Care 03/08/2025 10:10 AM EDT Office Visit [facility] [address] [place], [place] [id number] Meghana Bustamante, WEB MARKETING ANALYST - CNM Well woman exam with routine [...] = 0.6 oz pur e alcohol) socially [facility] Utilities Answer Date Recorded In the past 12 months has th e [employer], gas, oil, or water [employer] threatened to shut off services in your [...] any time in the past 12 [facility], were you homeless or living in a correction (including now)? No 03/08/2025 Food Insecurity Answer [...] Info) Description 06/22/2025 8:00 AM EDT Appointment [facility] [address] [place] [address] Yearly 03/12/2026 10:10 AM EDT Office Visit [facility] Part of [address] [place] [address] Meghana Bustamante APRN - ROSE [address] [place] [address] annual Health Maintenance Due Date Last Done [...] HIGH RISK Routine 03/08/2025 12:00 AM EDT COMMUNICATION ENGINEER CYTOLOGY Routine 03/08/2025 12:00 AM EDT L[employer] DIGITAL SCREEN BILATERAL Routine 05/09/2024 7:55 AM EDT Encounter for screening mammogram for malignant neoplasm of breast from Last 3 Months or Most Recently Relevant to Health Maintenance Results * Human papillomavirus (HPV) DNA probe thin prep high risk (03/08/2025 12:00 AM EDT) Specimen Description CERVICAL MATERIAL 03/08/2025 12:00 AM EDT [facility] HPV Sample .THIN PREP 03/08/2025 12:00 AM EDT [facility] [employer] HPV, Genotype 16 Not Detected Not Detected 03/08/2025 12:00 AM EDT [facility] HPV, Genotype 18 Not Detected Not Detected 03/08/2025 12:00 AM EDT [employer] HPV, High Risk Other Not Detected Not Detected 03/08/2025 12:00 AM EDT [facility] HPV, Interpretation 03/08/2025 12:00 AM EDT [facility] [employer] Comment: This test amplifies and detects DNA [...] forensic purposes. CERVICAL MATERIAL 03/08/2025 Meghana Bustamante WEB MARKETING ANALYST - CN HEMATOLOGY ORDERABLES Final Result [facility] [address] [place] [address], [facility] [phone] [place] [id number] [place] [id number] [phone] * COMMUNICATION ENGINEER Cytology (03/08/2025 12:00 AM EDT) Cytology Report Path Number: [id number] DIAGNOSIS Imaged ThinPrep Pap - Cervical (1 [...] or for other forensic purposes. Performed at [facility] [address] ([phone] Source of Specimen: A: Imaged ThinPrep Pap - Cervical (1 monolayer slide) HPV Reflex?........... ...........HPV Regardless Clinical History Z01.419 Routine gynaecological oncologist exam without abnormal findings Z11.51 Encounter for screening for HPV Processing Lab: [address] [id number] Interpretation performed at [address] [address] This Pap Test has been evaluated with [...] GYNECOLOGIC CYTOLOGY REPORT Patient Name: KALINA HAMMONDS [facility] Rec: [id number] [facility] ANATOMIC PATHOLOGY [address] [place] [address]. [place], [place] [address] [facility] [employer] CERVICAL MATERIAL 03/08/2025 025 7:41 AM EDT Meghana Bustamante WEB MARKETING ANALYST - REGINE PATHOLOGY/CYTOLOGY OR DERABLES Final Result [facility] [address] [phone] [facility] [employer] * LEE SHILPA DIGITAL SCREEN BILATERAL (05/09/2024 [...] to the patient regarding the results. [employer] recommends annual mammograms for [...] Relevant to Health Maintenance Insurance Care Teams Technology Director Relationship Specialty Start Date End Date Dalton Reyes DO PCP - General 11/23/13
--- NOTE | 2025-05-30 10:09 | CM.NOTE ---
Rounds made with Dr. Estrada, discussed with pt plan of care. Lab work and MRI discussed with pt. No discharge today. Clarified status, pt will be OBS status.
[2025-05-31] VITALS (8 sets, daily range): BP systolic 132–146; BP diastolic 82–98; PULSE 64–96; TEMP 36.6–36.8; O2SAT 97–98
--- NOTE | 2025-05-31 07:55 | CM.NOTE ---
Rounds made with Dr. Estrada, pt will discharge to home and f/u with Vickie and PCP. CM back in to speak with pt again about recording BP at least twice a day. Pt will also take the BP recording with her for PCP follow up for medication titration if necessary. Pt also give list of recommendations from tele-neurologist ([facility]) to take with her when she sees Dr. Johnston. Pt verbalizes understanding.
[2025-05-31] MEDS: METOPROLOL SUCCINATE 25 MG TAB.ER.24H PO (08:15)
[2025-05-31] MEDS: LISINOPRIL 10 MG TABLET PO (08:15)
[2025-05-31] MEDS: AMLODIPINE BESYLATE 5 MG TABLET 2.5 MG PO (08:16)
[2025-05-31] MEDS: HYDROCHLOROTHIAZIDE 25 MG TABLET PO (08:16)
--- NOTE | 2025-05-31 09:13 | P.DS_ITS ---
DS: Providers Provider Date of admission: 05/29/25 11:26 Primary care physician: RONDA MOREL Consults: 05/29/25 09:51 Consult to TeleNeurology Routine Reason for consultation: hypertensive encephalopathy DS: Diagnosis Discharge Diagnosis (1) Hypertensive emergency: Plan As listed above, below and others that are not listed DS: Summary Hospital Course Hospital Course: Mrs. Lindo is a 44-year-old female with a known diagnosis of hypertension and questionable MS. She came with headaches and there was found to have the following: Hypertensive emergency in this 44-year-old female. Rule out secondary hypertension such as renal artery stenosis secondary to fibromuscular hypertrophy, pheochromocytoma, hyperaldosterenemia Requested to check metanephrine, aldosterone and renin level. All pending Requested renal Doppler ultrasound rule out renal artery stenosis. This came back negative for renal artery stenosis. Ideally patient may need CTA of the abdomen to see if she has any stenosis Started her on a combination of blood pressure medication to keep her systolic less than 150. Blood pressure is under better control Urine drug screen is negative Patient does not have features that would indicate obstructive sleep apnea contributing to her hypertensive urgency. Patient drinks a few beers a day. No excessive alcohol consumption. No tobacco use, no drug use. Continue current regimen today. Pending metanephrine, aldosterone, renin will need to be followed up by PCP. She may need the CTA of the renal artery if she continues to have resistant hypertension to be arranged by PCP. Additional adjustment of BP meds will need to take place. Could take place in the outpatient setting to keep systolic between [address] brain suspicious for PRES MRI does not show any evidence of Pres. Suspicious for MS. Patient had seen neurologist Dr. Morales Johnston last year. She had the MRI and LP at that time. Those came back negative for MS. patient was seen by [facility] neurology team. They thought that the patient may have MS despite negative workup in the past. They recommended additional workup, investigation and testing to be done by her primary neurologist. Please refer to their notes for details. We will arrange for patient to follow-up with him. DVT prophy Lovenox Discharge instructions I may not have addressed or treated all of your medical illnesses or the abnormal blood work or imaging studies during this hospitalization. Please ask your primary care provider to obtain [facility] records entirely to follow up on all of the abnormal physical, laboratory, and imaging findings that I have not addressed. Please return back to the emergency room or seek medical attention if your symptoms worsen or return. Please follow-up with your primary care doctor. Some of the blood test that I ordered for high blood pressure (metanephrine, aldosterone and renin ) are still not resulted. Please ask your primary care doctor to review results when they become available. Current blood pressure medication regimen may not be final or set in stone Please check your blood pressure twice a day at work. Please keep blood pressure and heart rate log. Provide log to your primary care doctor to review Please notify your primary care doctor if your systolic blood pressure (the upper blood pressure reading ) is above 170 or less than 115 so medications adjustment would need to take place. Please follow-up with your neurologist Dr. Johnston Please ask him to review [facility] record specifically neurology consultation recommendation. Discharging you from [facility] does not mean that your medical care ends here and now. You may still need additional monitoring, work up, investigation, and treatment plan to be handled from this point on by out patient providers including your primary care provider and specialists. For any medication question, please contact your retail pharmacist or your primary care provider. Thank you. Time Spent with Patient Time attestation: Total time spent providing and/or coordinating discharge services: Exam Narrative Exam Narrative: [pt is awake and alert. oriented to place, time and person HEENT: Bland conjunctiva and NL buccal mucosa Neck: Supple, no tenderness Endocrine: No Thyromegaly. Vascular: No JVD or carotid bruit. Lymphatic: No cervical lymphadenopathy. Chest: CTA no DTP. Heart RRR, no extra sound or murmur. Abd: Soft, no tenderness, no rebound and no rigidity. Increase abd girth therefore clinically I could not exclude the possibility of intra abd mass or organomegaly. LE: No cyanosis or clubbing, no varices or edema. Neuro: A A O. Nl speech, comprehension and attention. Nl and symetrical motor and tone examination through out. []] Constitutional Vital Signs, click to edit/add: Last Vital Signs Temp 97.9 F 05/31/25 07:20 Pulse 96 H 05/31/25 07:50 Resp 18 05/31/25 07:20 BP 146/98 H 05/31/25 07:20 Pulse Ox 98 05/31/25 07:20 O2 Del Method Room Air 05/31/25 07:20 Discharge Plan Discharge Disposition: Home, Self-Care Discharge Medications: New lisinopril-hydrochlorothiazide 10-12.5 mg tablet 1 tab PO DAILY Qty: 30 2RF labetalol 100 mg tablet 100 mg PO BID Qty: 60 2RF Continued amlodipine 5 mg tablet 5 mg PO DAILY Discontinued lisinopril 40 mg tablet 40 mg PO DAILY Print Language: Anguill[place] Patient Instructions: Hypertensive Crisis (DC) Activity Restrictions/Additional Instructions: I may not have addressed or treated all of your medical illnesses or the abnormal blood work or imaging studies during this hospitalization. Please ask your primary care provider to obtain [facility] records entirely to follow up on all of the abnormal physical, laboratory, and imaging findings that I have not addressed. Please return back to the emergency room or seek medical attention if your symptoms worsen or return. Please follow-up with your primary care doctor. Some of the blood test that I ordered for high blood pressure (metanephrine, aldosterone and renin ) are still not resulted. Please ask your primary care doctor to review results when they become available. Current blood pressure medication regimen may not be final or set in stone Please check your blood pressure twice a day at work. Please keep blood pressure and heart rate log. Provide log to your primary care doctor to review Please notify your primary care doctor if your systolic blood pressure (the upper blood pressure reading ) is above 170 or less than 115 so medications adjustment would need to take place. Please follow-up with your neurologist Dr. Johnston Please ask him to review [facility] record specifically neurology consultation recommendation. Discharging you from [facility] does not mean that your medical care ends here and now. You may still need additional monitoring, work up, investigation, and treatment plan to be handled from this point on by out patient providers including your primary care provider and specialists. For any medication question, please contact your retail pharmacist or your primary care provider. Thank you. Forms: Portal Instructions Referrals: RONDA MOREL [Primary Care Provider, [facility]] Follow Up Appointments: @ 9am with Dr. Johnston [facility], [address] [phone]
--- NOTE | 2025-06-01 15:52 | CM.DCFOLLOWU ---
1st attempt 06/01/25, no answer
[2025-06-01 17:09] LABS: Aldosterone LCMS, Serum 9.1 ng/dL (0.0-30.0)
[2025-06-03 15:18] LABS: Renin Activity, Plasma 0.729 ng/mL/hr (0.167-5.380)
--- NOTE | 2025-06-05 14:31 | CM.DCFOLLOWU ---
Person spoke with:Dorcas How are you feeling?Good How is your pain? No pain Did you understand your discharge instructions? Yes Do you have any questions about your discharge instructions? No Were you given any prescriptions at discharge? Yes Were you able to get your prescriptions filled? Yes Do you understand how to take your medications as ordered? Yes Do you have any questions about your follow up appointment and do you plan to keep your follow up appointment? No questions and yes she has appt with Dr Reyes on 06/21/2025 Is there anything else that you would like to discuss? No Questions/Comments/Concerns/Other:
== END 2025-05-31 10:28 | disposition home or self-care (01) ==
LOC: ER 10:51 → MS 20:13
PROVIDERS: Admitting Provider Internal Medicine; Emergency Provider Emergency Medicine; PCP Family Medicine; Visit Provider Internal Medicine
DX: I16.1 Hypertensive emergency (principal); Z79.899 Other long term (current) drug therapy; R93.0 Abnormal findings on diagnostic imaging of skull and head, not elsewhere classified
CPT/HCPCS: 36415; 70450; 70553; 76775; 80048; 80053; 80307; 81001; 82088; 83835; 84244; 84484; 84703; 85025; 85610; 93005; 93306; 93356; 93975; 96365; 96366; 96372; 96375; 99285; A9575; G0378; J0360; J1650; J1885; J2404